=== PATIENT | female | born 1965 | race Caucasian/White ===

== ENCOUNTER 2018-03-22 10:12 | Day surgery (SDC) | payer BC ==
[2018-03-20 15:51] VITALS: BMI 26.4
[~2018-03-22 10:12] MED LIST: LACTATED RINGERS 1,000 ML IV SCH
[2018-03-22 10:40] VITALS: TEMP 97.6
[2018-03-22] MEDS ORDERED: LIDOCAINE 1% 20 ML VIAL (10MG/ML) FOR IV START INTRADERMA ONE (10:47)
[2018-03-22] MEDS ORDERED: LACTATED RINGERS 1,000 ML IV ONE ×2 (10:48)
[2018-03-22] MEDS ORDERED: fentaNYL (PF) 50 MCG/ML 2 ML AMP ONE (11:24)
[2018-03-22] MEDS ORDERED: PROPOFOL 10 MG/ML 20 ML VIAL IV ONE (11:24)
[2018-03-22] MEDS ORDERED: KETAMINE 10 MG/ML 20 ML VIAL ONE (11:24)
--- NOTE | 2018-03-22 11:36 | P.GSHP ---
History of Present Illness H&P Date: 03/22/18 Chief Complaint: Screening colonoscopy This a 52-year-old female who presents today for screening colonoscopy. She's never had a colonoscopy before. Past Medical History Past Medical History: No Reported History History of Any Multi-Drug Resistant Organisms: None Reported Past Surgical History: Back Surgery, Tonsillectomy Past Anesthesia/Blood Transfusion Reactions: No Reported Reaction Smoking Status: Never smoker - Past Family History Mother Family Medical History: No Reported History Medications and Allergies Home Medications Medication Instructions Recorded Confirmed Type Ibuprofen [Motrin] 600 mg PO Q6HR PRN 03/20/18 03/22/18 History Allergies Allergy/AdvReac Type Severity Reaction Status Date / Time No Known Allergies Allergy Verified 03/22/18 10:29 Surgical - Exam Vital Signs Temp Pulse Resp BP Pulse Ox 97.6 F 74 16 113/70 98 03/22/18 10:39 03/22/18 10:39 03/22/18 10:39 03/22/18 10:39 03/22/18 10:39 - General well developed, no distress - Eyes PERRL - ENT normal pinna - Neck no masses - Respiratory normal expansion - Cardiovascular Rhythm: regular - Abdomen Abdomen: soft, non tender Assessment and Plan Assessment: We'll perform screening colonoscopy.
--- NOTE | 2018-03-22 11:55 | P.OP ---
Date of Procedure: 03/22/18 Preoperative Diagnosis: Screening colonoscopy Postoperative Diagnosis: Normal colon Procedure(s) Performed: Colonoscopy Anesthesia: MAC Surgeon: Phoenix Bill Pathology: none sent Condition: stable Disposition: PACU Description of Procedure: PROCEDURE: The patient was placed on the endoscopy table in the lateral position. Digital rectal examination was performed which revealed no abnormalities. es. Flexible colonoscope was then placed in the patient's anus and passed throughout the entire colon. The ileocecal valve was visualized. The cecum, ascending, transverse, descending and sigmoid colon were normal. The rectum was normal as well. There were no masses, polyps or diverticula noted in the entire colon. SUMMARY OF FINDINGS: Normal colonoscopy.
[2018-03-22 12:09] VITALS: BP 102/69; PULSE 80; RESP 16
== END 2018-03-22 12:35 | disposition home or self-care (01) ==
LOC: ORWHC2ENDO 10:12
PROVIDERS: ATTEND Surgery
DX: Z12.11 Encounter for screening for malignant neoplasm of colon (principal); F17.200 Nicotine dependence, unspecified, uncomplicated
CPT/HCPCS: J3010; J2704; G0121

== ENCOUNTER 2019-08-04 09:56 | Inpatient (IN) | payer BC ==
[2019-08-04] MEDS ORDERED: ACETAMINOPHEN TAB 500 MG TAB PO STA (10:26)
[2019-08-04] MEDS ORDERED: KETOROLAC 30 MG/ML 1 ML VIAL IVP STA (10:27)
[2019-08-04] MEDS ORDERED: SODIUM CHLORIDE 0.9% 1,000 ML IV STA ×2 (10:31→14:10)
--- NOTE | 2019-08-04 10:32 | ED ---
General Adult HPI - General Chief complaint: Urogenital Stated complaint: Fever, poss UTI Time Seen by Provider: 08/04/19 10:11 Source: patient, RN notes reviewed Mode of arrival: EMS Limitations: no limitations - History of Present Illness Initial comments: 53-year-old female presents to the emergency department for a chief complaint of fever. Patient states that she believes she has a urinary tract infection. States she has some dull pain in her back and has had some pain in her lower abdomen. Patient states that she has had urinary urgency and cloudy urine for the past 2-3 days. She states she noticed a fever yesterday and was taking Motrin and Tylenol. She has not taken anything today.Patient has no other complaints at this time including shortness of breath, chest pain, nausea or vomiting, headache, or visual changes. - Related Data Home Medications Medication Instructions Recorded Confirmed Ibuprofen [Motrin] 600 mg PO Q6HR PRN 03/20/18 03/22/18 Allergies Allergy/AdvReac Type Severity Reaction Status Date / Time No Known Allergies Allergy Verified 03/22/18 10:29 Review of Systems ROS Statement: Those systems with pertinent positive or pertinent negative responses have been documented in the HPI. ROS Other: All systems not noted in ROS Statement are negative. Past Medical History Past Medical History: No Reported History History of Any Multi-Drug Resistant Organisms: None Reported Past Surgical History: Back Surgery, Tonsillectomy Past Anesthesia/Blood Transfusion Reactions: No Reported Reaction Past Psychological History: No Psychological Hx Reported Smoking Status: Never smoker Past Alcohol Use History: Occasional Past Drug Use History: None Reported - Past Family History Mother Family Medical History: No Reported History General Exam Limitations: no limitations General appearance: alert, in no apparent distress Head exam: Present: atraumatic, normocephalic, normal inspection Eye exam: Present: normal appearance, PERRL, EOMI. Absent: scleral icterus, conjunctival injection, periorbital swelling ENT exam: Present: normal exam, mucous membranes moist Neck exam: Present: normal inspection, full ROM. Absent: tenderness, meningism us, lymphadenopathy Respiratory exam: Present: normal lung sounds bilaterally. Absent: respiratory distress, wheezes, rales, rhonchi, stridor Cardiovascular Exam: Present: regular rate, normal rhythm, normal heart sounds. Absent: systolic murmur, diastolic murmur, rubs, gallop, clicks GI/Abdominal exam: Present: soft, normal bowel sounds. Absent: distended, tenderness, guarding, rebound, rigid Course Vital Signs 08/04/19 08/04/19 08/04/19 10:03 11:12 11:17 Temperature 103 F H 103.7 F H Pulse Rate 141 H 122 H Respiratory 19 18 Rate Blood Pressure 127/73 113/69 O2 Sat by Pulse 96 98 Oximetry 08/04/19 12:45 Temperature 101.0 F H Pulse Rate 104 H Respiratory 18 Rate Blood Pressure 92/54 O2 Sat by Pulse 94 L Oximetry EKG Findings - EKG Comments: EKG Findings:: Sinus tachycardia, ventricular rate 124, [place] interval 164, QTc 402 Medical Decision Making - Medical Decision Making 53-year-old female presents for a chief complaint of fever. States she believes she has a urinary tract infection. She does not have any significant past medical history. Patient initially had a temperature of 103.7 with a pulse rate of 141. This did improve throughout her stay to 104 heart rate and 101 temperature. She was given antipyretics and 2 L of fluids. She does have a minimal bilateral CVA tenderness. Patient has a white count of 22 with a left shift. CMP unremarkable. Urinalysis does show evidence of infection. CT abdomen and pelvis was obtained to rule out septic stone. This demonstrates bilateral perinephric fat stranding affecting left kidney and a greater degree than the right. Nonspecific in the setting of recently passed calculus or pyelonephritis. Clinically patient does have pyelonephritis. Patient was given 2 L of fluids and 2 g of Rocephin. Vitals have remained stable the patient is borderline hypotensive. She will be kept in the hospital for pyelonephritis and IV fluids. - Lab Data Result diagrams: 08/04/19 11:03 08/04/19 11:03 Lab Results 08/04/19 08/04/19 08/04/19 Range/Units 11:03 11:03 11:03 WBC 22.9 H (3.8-10.6) k/uL RBC 4.12 (3.80-5.40) m/uL Hgb 13.1 (11.4-16.0) gm/dL Hct 37.1 (34.0-46.0) % MCV 89.9 (80.0-100.0) fL MCH 31.8 (25.0-35.0) pg MCHC 35.4 (31.0-37.0) g/dL RDW 12.5 (11.5-15.5) % Plt Count 157 (150-450) k/uL Neutrophils % 90 % Lymphocytes % 2 % Monocytes % 5 % Eosinophils % 0 % Basophils % 0 % Neutrophils # 20.5 H (1.3-7.7) k/uL Lymphocytes # 0.5 L (1.0-4.8) k/uL Monocytes # 1.2 H (0-1.0) k/uL Eosinophils # 0.1 (0-0.7) k/uL Basophils # 0.0 (0-0.2) k/uL PT (9.0-12.0) sec INR (<1.2) APTT (22.0-30.0) sec Sodium 134 L (137-145) mmol/L Potassium 4.0 (3.5-5.1) mmol/L Chloride 101 (98-107) mmol/L Carbon Dioxide 22 (22-30) mmol/L Anion Gap 11 mmol/L BUN 16 (7-17) mg/dL Creatinine 0.72 (0.52-1.04) mg/dL Est GFR (CKD-EPI)AfAm >90 (>60 ml/min/1.73 sqM) Est GFR (CKD-EPI)NonAf >90 (>60 ml/min/1.73 sqM) Glucose 113 H (74-99) mg/dL Plasma Lactic Acid Elias 0.7 (0.7-2.0) mmol/L Calcium 9.1 (8.4-10.2) mg/dL Total Bilirubin 1.0 (0.2-1.3) mg/dL AST 20 (14-36) U/L ALT 24 (9-52) U/L Alkaline Phosphatase 81 (38-126) U/L Total Protein 6.7 (6.3-8.2) g/dL Albumin 3.9 (3.5-5.0) g/dL Urine Color Urine Appearance (Clear) Urine pH (5.0-8.0) Ur Specific [place] (1.001-1.035) Urine Protein (Negative) Urine Glucose (UA) (Negative) Urine Ketones (Negative) Urine Blood (Negative) Urine Nitrite (Negative) Urine Bilirubin (Negative) Urine Urobilinogen (<2.0) mg/dL Ur Leukocyte Esterase (Negative) Urine RBC (0-5) /hpf Urine WBC (0-5) /hpf Urine WBC Clumps (None) /hpf Ur Squamous Epith Cells (0-4) /hpf Urine Bacteria (None) /hpf Urine Mucus (None) /hpf 08/04/19 08/04/19 Range/Units 11:03 12:03 WBC (3.8-10.6) k/uL RBC (3.80-5.40) m/uL Hgb (11.4-16.0) gm/dL Hct (34.0-46.0) % MCV (80.0-100.0) fL MCH (25.0-35.0) pg MCHC (31.0-37.0) g/dL RDW (11.5-15.5) % Plt Count (150-450) k/uL Neutrophils % % Lymphocytes % % Monocytes % % Eosinophils % % Basophils % % Neutrophils # (1.3-7.7) k/uL Lymphocytes # (1.0-4.8) k/uL Monocytes # (0-1.0) k/uL Eosinophils # (0-0.7) k/uL Basophils # (0-0.2) k/uL PT 10.7 (9.0-12.0) sec INR 1.0 (<1.2) APTT 27.7 (22.0-30.0) sec Sodium (137-145) mmol/L Potassium (3.5-5.1) mmol/L Chloride (98-107) mmol/L Carbon Dioxide (22-30) mmol/L Anion Gap mmol/L BUN (7-17) mg/dL Creatinine (0.52-1.04) mg/dL Est GFR (CKD-EPI)AfAm (>60 ml/min/1.73 sqM) Est GFR (CKD-EPI)NonAf (>60 ml/min/1.73 sqM) Glucose (74-99) mg/dL Plasma Lactic Acid Elias (0.7-2.0) mmol/L Calcium (8.4-10.2) mg/dL Total Bilirubin (0.2-1.3) mg/dL AST (14-36) U/L ALT (9-52) U/L Alkaline Phosphatase (38-126) U/L Total Protein (6.3-8.2) g/dL Albumin (3.5-5.0) g/dL Urine Color Yellow Urine Appearance Turbid H (Clear) Urine pH 6.0 (5.0-8.0) Ur Specific [place] 1.019 (1.001-1.035) Urine Protein 2+ H (Negative) Urine Glucose (UA) 1+ H (Negative) Urine Ketones Negative (Negative) Urine Blood Moderate H (Negative) Urine Nitrite Positive H (Negative) Urine Bilirubin Negative (Negative) Urine Urobilinogen <2.0 (<2.0) mg/dL Ur Leukocyte Esterase Large H (Negative) Urine RBC >182 H (0-5) /hpf Urine WBC >182 H (0-5) /hpf Urine WBC Clumps Many H (None) /hpf Ur Squamous Epith Cells 1 (0-4) /hpf Urine Bacteria Few H (None) /hpf Urine Mucus Few H (None) /hpf Disposition Clinical Impression: Pyelonephritis Disposition: ADMITTED IP TO THIS [facility] Condition: Serious Is patient prescribed a controlled substance at d/c from ED?: No Referrals: Meghana Thompson DO [Primary Care Provider] - 1-2 days Time of Disposition: 13:11
[2019-08-04] MEDS: SODIUM CHLORIDE 0.9% 500 ML 500 ML IV SCH ×2 (11:08→12:38)
[2019-08-04 11:31] LABS: Basophils % (A) 0 %; Eosinophils # (A) 0.1 k/uL (0-0.7); Eosinophils % (A) 0 %; HCT 37.1 % (34.0-46.0); HGB 13.1 gm/dL (11.4-16.0); Lymphocytes # (A) 0.5 k/uL (1.0-4.8); Lymphocytes % (A) 2 %; MCH 31.8 pg (25.0-35.0); MCHC 35.4 g/dL (31.0-37.0); MCV 89.9 fL (80.0-100.0); Mean Platelet Volume 6.3; Monocytes # (A) 1.2 k/uL (0-1.0); Monocytes % (A) 5 %; Neutrophils # (A) 20.5 k/uL (1.3-7.7); Neutrophils % (A) 90 %; Platelet Count 157 k/uL (150-450); RBC 4.12 m/uL (3.80-5.40); RDW 12.5 % (11.5-15.5); WBC 22.9 k/uL (3.8-10.6)
[2019-08-04 11:37] LABS: Appearance,Urine Turbid (Clear); Bacteria,Urine Few /hpf; Bilirubin,Urine Negative (Negative); Blood,Urine Moderate (Negative); Color,Urine Yellow; Glucose,Urine (UA) 1+ (Negative); Ketones,Urine Negative (Negative); Leukocyte Esterase,Urine Large (Negative); Mucus,Urine Few /hpf; Nitrite,Urine Positive (Negative); Protein,Urine 2+ (Negative); RBC,Urine >182 /hpf (0-5); Specific Gravity,Urine 1.019 (1.001-1.035); Squamous Epithelial Cell,Urine 1 /hpf (0-4); Urobilinogen,Urine <2.0 mg/dL (<2.0)
[2019-08-04 11:44] LABS: ALT 24 U/L (9-52); AST 20 U/L (14-36); African American GFR (CKD) >90 (>60 ml/min/1.73 sqM); Albumin 3.9 g/dL (3.5-5.0); Alkaline Phosphatase 81 U/L (38-126); Anion Gap 11 mmol/L; Blood Urea Nitrogen 16 mg/dL (7-17); Calcium 9.1 mg/dL (8.4-10.2); Carbon Dioxide 22 mmol/L (22-30); Chloride 101 mmol/L (98-107); Glucose 113 mg/dL (74-99); Non-African American GFR(CKD) >90 (>60 ml/min/1.73 sqM); Sodium 134 mmol/L (137-145); Total Protein 6.7 g/dL (6.3-8.2)
[2019-08-04 12:26] LABS: Partial Thromboplastin Time 27.7 sec (22.0-30.0); Prothrombin Time 10.7 sec (9.0-12.0)
--- NOTE | 2019-08-04 12:27 | XR ---
EXAMINATION TYPE: XR chest 2V DATE OF EXAM: 08/04/2019 COMPARISON: Prior chest x-ray 11/03/2015 HISTORY: Cough TECHNIQUE: Frontal and lateral views of the chest are obtained. FINDINGS: There are overlying cardiac leads. There is no focal air space opacity, pleural effusion, o r pneumothorax seen. The cardiac silhouette size is within normal limits. The osseous structures a re intact, postop changes are again noted at the thoracic lumbar spine. IMPRESSION: No acute cardiopulmonary process.
--- NOTE | 2019-08-04 12:50 | CT ---
EXAMINATION TYPE: CT abdomen pelvis wo con DATE OF EXAM: 08/04/2019 COMPARISON: None HISTORY: Pelvic pain, low back pain, cloudy urine CT DLP: 457.2 mGycm Automated exposure control for dose reduction was used. TECHNIQUE: Helical acquisition of images was performed from the lung bases through the pelvis. FINDINGS: The study is limited due to lack of intravenous contrast. Likely right basilar subsegmental atelectas is. No pericardial fluid. The liver, spleen, pancreas, and adrenal glands have an unremarkable noncontrasted appearance. No fred cified gallstones. There is bilateral perinephric fat stranding, left greater than right. The collecting system is promi nent on the left without overt hydronephrosis. No calculi along the urinary tract. Urinary bladder wa ll thickening with mild perivesicular inflammatory changes. Scattered pelvic phleboliths. Anteverted uterus, lobulated with internal calcification which is statistically due to fibroid change s. No dilated bowel, free air, or free fluid. Morphologically normal appendix. Ovoid fatty lesion within the duodenal jejunal junction likely lipoma. No suspicious adenopathy. Normal course and caliber of the aorta. Remote fracture deformity of L1 bridged by T12-L2 posterior fusion hardware. The left L2 pedicular sc rew is fractured. Degenerative changes throughout the lumbar spine are greatest in degree at L5-S1 wh ich is characterized by loss of disc height, discogenic endplate changes, and osteophyte formation. IMPRESSION: 1. Bilateral perinephric fat stranding affecting the left kidney in a greater degree than the right. This finding is nonspecific however can be seen in the setting of recently passed ureteral calculus o r pyelonephritis. Mild urinary bladder wall thickening with perivesicular inflammation also noted, co rrelate with urinalysis. 2. No urinary tract calculi are visualized. 3. T12-L2 posterior fusion hardware with fracture of the left L2 transpedicular screw.
[2019-08-04] MEDS ORDERED: NALOXONE 0.4 MG/ML 1 ML VIAL IV PRN (13:12)
[2019-08-04] MEDS ORDERED: ONDANSETRON 4 MG/2 ML VIAL IVP PRN (13:12)
[2019-08-04] MEDS: SODIUM CHLORIDE 0.9% 1,000 ML IV SCH (14:03)
--- NOTE | 2019-08-04 14:26 | ED ---
Medical Decision Making - Lab Data Result diagrams: 08/04/19 11:03 08/04/19 11:03 Lab Results 08/04/19 08/04/19 08/04/19 Range/Units 11:03 11:03 11:03 WBC 22.9 H (3.8-10.6) k/uL RBC 4.12 (3.80-5.40) m/uL Hgb 13.1 (11.4-16.0) gm/dL Hct 37.1 (34.0-46.0) % MCV 89.9 (80.0-100.0) fL MCH 31.8 (25.0-35.0) pg MCHC 35.4 (31.0-37.0) g/dL RDW 12.5 (11.5-15.5) % Plt Count 157 (150-450) k/uL Neutrophils % 90 % Lymphocytes % 2 % Monocytes % 5 % Eosinophils % 0 % Basophils % 0 % Neutrophils # 20.5 H (1.3-7.7) k/uL Lymphocytes # 0.5 L (1.0-4.8) k/uL Monocytes # 1.2 H (0-1.0) k/uL Eosinophils # 0.1 (0-0.7) k/uL Basophils # 0.0 (0-0.2) k/uL PT (9.0-12.0) sec INR (<1.2) APTT (22.0-30.0) sec Sodium 134 L (137-145) mmol/L Potassium 4.0 (3.5-5.1) mmol/L Chloride 101 (98-107) mmol/L Carbon Dioxide 22 (22-30) mmol/L Anion Gap 11 mmol/L BUN 16 (7-17) mg/dL Creatinine 0.72 (0.52-1.04) mg/dL Est GFR (CKD-EPI)AfAm >90 (>60 ml/min/1.73 sqM) Est GFR (CKD-EPI)NonAf >90 (>60 ml/min/1.73 sqM) Glucose 113 H (74-99) mg/dL Plasma Lactic Acid Elias 0.7 (0.7-2.0) mmol/L Calcium 9.1 (8.4-10.2) mg/dL Total Bilirubin 1.0 (0.2-1.3) mg/dL AST 20 (14-36) U/L ALT 24 (9-52) U/L Alkaline Phosphatase 81 (38-126) U/L Total Protein 6.7 (6.3-8.2) g/dL Albumin 3.9 (3.5-5.0) g/dL Urine Color Urine Appearance (Clear) Urine pH (5.0-8.0) Ur Specific [place] (1.001-1.035) Urine Protein (Negative) Urine Glucose (UA) (Negative) Urine Ketones (Negative) Urine Blood (Negative) Urine Nitrite (Negative) Urine Bilirubin (Negative) Urine Urobilinogen (<2.0) mg/dL Ur Leukocyte Esterase (Negative) Urine RBC (0-5) /hpf Urine WBC (0-5) /hpf Urine WBC Clumps (None) /hpf Ur Squamous Epith Cells (0-4) /hpf Urine Bacteria (None) /hpf Urine Mucus (None) /hpf 08/04/19 08/04/19 Range/Units 11:03 12:03 WBC (3.8-10.6) k/uL RBC (3.80-5.40) m/uL Hgb (11.4-16.0) gm/dL Hct (34.0-46.0) % MCV (80.0-100.0) fL MCH (25.0-35.0) pg MCHC (31.0-37.0) g/dL RDW (11.5-15.5) % Plt Count (150-450) k/uL Neutrophils % % Lymphocytes % % Monocytes % % Eosinophils % % Basophils % % Neutrophils # (1.3-7.7) k/uL Lymphocytes # (1.0-4.8) k/uL Monocytes # (0-1.0) k/uL Eosinophils # (0-0.7) k/uL Basophils # (0-0.2) k/uL PT 10.7 (9.0-12.0) sec INR 1.0 (<1.2) APTT 27.7 (22.0-30.0) sec Sodium (137-145) mmol/L Potassium (3.5-5.1) mmol/L Chloride (98-107) mmol/L Carbon Dioxide (22-30) mmol/L Anion Gap mmol/L BUN (7-17) mg/dL Creatinine (0.52-1.04) mg/dL Est GFR (CKD-EPI)AfAm (>60 ml/min/1.73 sqM) Est GFR (CKD-EPI)NonAf (>60 ml/min/1.73 sqM) Glucose (74-99) mg/dL Plasma Lactic Acid Elias (0.7-2.0) mmol/L Calcium (8.4-10.2) mg/dL Total Bilirubin (0.2-1.3) mg/dL AST (14-36) U/L ALT (9-52) U/L Alkaline Phosphatase (38-126) U/L Total Protein (6.3-8.2) g/dL Albumin (3.5-5.0) g/dL Urine Color Yellow Urine Appearance Turbid H (Clear) Urine pH 6.0 (5.0-8.0) Ur Specific [place] 1.019 (1.001-1.035) Urine Protein 2+ H (Negative) Urine Glucose (UA) 1+ H (Negative) Urine Ketones Negative (Negative) Urine Blood Moderate H (Negative) Urine Nitrite Positive H (Negative) Urine Bilirubin Negative (Negative) Urine Urobilinogen <2.0 (<2.0) mg/dL Ur Leukocyte Esterase Large H (Negative) Urine RBC >182 H (0-5) /hpf Urine WBC >182 H (0-5) /hpf Urine WBC Clumps Many H (None) /hpf Ur Squamous Epith Cells 1 (0-4) /hpf Urine Bacteria Few H (None) /hpf Urine Mucus Few H (None) /hpf Disposition Clinical Impression: Pyelonephritis Disposition: ADMITTED IP TO THIS HOSP Condition: Serious Referrals: Meghana Thompson DO [Primary Care Provider] - 1-2 days Procedures - Sepsis Sepsis Focused Exam #1 Sepsis Focused Exam Date: 08/04/19 Sepsis Focused Exam Time: 14:15 Sepsis Focused Exam Complete: Yes Vital Signs & RN Notes Reviewed: Yes Capillary Refill: > 2 Seconds: Fingers, Toes Peripheral Pulses: Strong: Radial (R), Radial (L) Skin Color: Normal for Patient Respiratory Exam: normal lung sounds Cardiovascular Exam: regular rate, normal rhythm
[2019-08-04 15:23] VITALS: BMI 25.5
[2019-08-04] MEDS: HYDROcodone/APAP 5-325MG 1 EACH TAB PO PRN (16:32)
[2019-08-04] MEDS: ACETAMINOPHEN TAB 500 MG TAB PO PRN ×2 (17:54→23:44)
--- NOTE | 2019-08-04 22:33 | P.HPIM ---
History of Present Illness H&P Date: 08/04/19 Chief Complaint: Left flank pain Patient is a 53-year-old female without significant past medical history except back surgery came to ER with complaints of fever and abdominal pain. Patient has been having left flank dull pain and lower abdominal pain for the past 2-3 days. Urine has been cloudy and has had urinary urgency and frequency. Patient has been taking Motrin Tylenol alternatively for fever. Patient says that she was treated for sinus problems about a month back with Augmentin course for 2 weeks. Patient was seen by the M.D. at the time. Denied any recent urinary tract infections. Patient was febrile on admission with T-max 10 3F. Patient denied any chest pain or shortness of breath. No nausea vomiting or diarrhea. No headache or dizziness or lightheadedness. WBC 22 CT of abdomen pelvis showed bilateral perinephric fat stranding affecting the le ft kidney greater than right. Suggestive of recently passed urinary calculi versus pyelonephritis. No urinary calculi was noted. Review of Systems Constitutional: Fever and chills . Generalized weakness and fatigue. Abdomen: Patient denied nausea vomiting and diarrhea and abdominal pain. Left flank pain and lower abdominal pain. Cardiovascular: Patient denies any chest pain or short of breath no palpitations. Respiratory: patient denied any cough is from production. No shortness of breath Neurologic: Patient denied any numbness or tingling headache. Musculoskeletal: Patient denies any complaints of joint swelling or deformity. Skin: Negative Psychiatric: Negative Endocrine: No heat or cold intolerance. No recent weight gain. Genitourinary: No dysuria or hematuria. All other 14 point ROS negative except the above Past Medical History Past Medical History: No Reported History History of Any Multi-Drug Resistant Organisms: None Reported Past Surgical History: Back Surgery, Tonsillectomy Additional Past Surgical History / Comment(s): bone fusion in 1998, jaw wired 3 yrs ago Past Anesthesia/Blood Transfusion Reactions: No Reported Reaction Past Psychological History: No Psychological Hx Reported Smoking Status: Never smoker Past Alcohol Use History: Occasional Past Drug Use History: None Reported - Past Family History Mother Family Medical History: No Reported History Medications and Allergies Home Medications Medication Instructions Recorded Confirmed Type Acetaminophen Tab [Tylenol Tab] 1,000 mg PO Q6HR PRN 08/04/19 08/04/19 History Albuterol Sulfate [Ventolin HFA] 2 puff INHALATION RT-Q6H PRN 08/04/19 08/04/19 History Cetirizine HCl [Zyrtec] 10 mg PO DAILY 08/04/19 08/04/19 History Cranberry Fruit Extract [Cranberry] 500 mg PO DAILY 08/04/19 08/04/19 History Ibuprofen [Motrin Ib] 800 mg PO Q6H PRN 08/04/19 08/04/19 History guaiFENesin-DM 600/30MG [Mucinex 1 tab PO Q12H PRN 08/04/19 08/04/19 History Dm] Allergies Allergy/AdvReac Type Severity Reaction Status Date / Time bee venom protein (honey bee) Allergy Unknown Verified 08/04/19 13:42 Milk Containing Products Allergy Unknown Verified 08/04/19 13:42 peanut Allergy Unknown Verified 08/04/19 13:42 salmon oil Allergy Unknown Verified 08/04/19 13:42 soy Allergy Unknown Verified 08/04/19 13:42 sesame seed AdvReac Unknown Verified 08/04/19 13:42 wheat AdvReac Unknown Verified 08/04/19 13:42 Physical Exam Vitals: Vital Signs Temp Pulse Pulse Resp BP BP Pulse Ox 08/04/19 17:47 127 H 08/04/19 17:35 101.1 F H 127 H 17 92/50 94 L 08/04/19 15:00 98.1 F 114 H 16 117/61 99 08/04/19 14:44 95 18 88/60 99 08/04/19 14:16 99.6 F 08/04/19 14:12 97 18 84/54 99 08/04/19 13:25 104/68 08/04/19 12:45 101.0 F H 104 H 18 92/54 94 L 08/04/19 11:17 122 H 18 113/69 98 08/04/19 11:12 103.7 F H 08/04/19 10:03 103 F H 141 H 19 127/73 96 Intake and Output 08/04/19 08/04/19 08/04/19 06:59 14:59 22:59 Other: Voiding Method Toilet Weight 61.28 kg PHYSICAL EXAMINATION: Patient is lying in the bed comfortably, no acute distress, awake alert and oriented.. HEENT: Normocephalic. Neck is supple. Pupils reactive. Nostrils clear. Oral cavity is moist. Ears reveal no drainage. Neck reveals no JVD, carotid bruits, or thyromegaly. CHEST EXAMINATION: Trachea is central. Symmetrical expansion. Lung ag clear to auscultation and percussion. CARDIAC: Normal S1, S2 with no gallops. No murmurs ABDOMEN: Soft. Mild lower abdominal tenderness. No guarding no rigidity. Bowel sounds normal. No organomegaly. No abdominal bruits. Extremities: reveal no edema. No clubbing or cyanosis Neurologically awake, alert, oriented x3 with well-coordinated movements. No focal deficits noted Skin: No rash or skin lesions. Psychiatric: Coperative. Nonsuicidal Musculoskeletal: No joint swelling or deformity. Normal range of motion. Results CBC & Chem 7: 08/04/19 11:03 08/04/19 11:03 Labs: Abnormal Lab Results - Last 24 Hours (Table) 08/04/19 08/04/19 08/04/19 Range/Units 11:03 11:03 11:03 WBC 22.9 H (3.8-10.6) k/uL Neutrophils # 20.5 H (1.3-7.7) k/uL Lymphocytes # 0.5 L (1.0-4.8) k/uL Monocytes # 1.2 H (0-1.0) k/uL Sodium 134 L (137-145) mmol/L Glucose 113 H (74-99) mg/dL Urine Appearance Turbid H (Clear) Urine Protein 2+ H (Negative) Urine Glucose (UA) 1+ H (Negative) Urine Blood Moderate H (Negative) Urine Nitrite Positive H (Negative) Ur Leukocyte Esterase Large H (Negative) Urine RBC >182 H (0-5) /hpf Urine WBC >182 H (0-5) /hpf Urine WBC Clumps Many H (None) /hpf Urine Bacteria Few H (None) /hpf Urine Mucus Few H (None) /hpf Microbiology - Last 24 Hours (Table) 08/04/19 11:03 Urine Culture - Preliminary Urine,Voided Thrombosis Risk Factor Assmnt - DVT/VTE Prophylaxis DVT/VTE Prophylaxis: Pharmacologic Prophylaxis ordered - Choose All That Apply Any of the Below Risk Factors Present?: No Assessment and Plan Assessment: Acute pyelonephritis Severe sepsis secondary to pyelonephritis Lactic acidosis on admission History of back surgery and chronic low back pain DVT prophylaxis with heparin subcu Plan: Patient will be continued on antibiotics in the form of ceftriaxone. Follow-up urine culture report. Continue with Tylenol for fever and IV hydration with normal saline at 1 25 mL per hour. Follow blood cultures. Further recommendations based on the clinical course. Discussed with the family at bedside in detail. Time with Patient: Greater than 30
[2019-08-04] MEDS ORDERED: SODIUM CHLORIDE 0.9% 1,000 ML IV ONE (22:37)
[2019-08-04] MEDS: HEPARIN SODIUM,PORCINE 5,000 UNIT/ML 1 ML VIAL SQ SCH (23:43)
[2019-08-05] MEDS: SODIUM CHLORIDE 0.9% 1,000 ML IV SCH ×4 (04:19→22:00)
[2019-08-05] MEDS ORDERED: SODIUM CHLORIDE 0.9% 500 ML 500 ML IV ONE (04:28)
[2019-08-05] MEDS: LORATADINE 10 MG TAB PO SCH (07:20)
[2019-08-05] MEDS: HEPARIN SODIUM,PORCINE 5,000 UNIT/ML 1 ML VIAL SQ SCH ×3 (07:20→23:46)
[2019-08-05] MEDS: ACETAMINOPHEN TAB 500 MG TAB PO PRN ×2 (07:40→18:13)
[2019-08-05 08:53] LABS: Basophils # (A) 0.1 k/uL (0-0.2); Basophils % (A) 0 %; Eosinophils % (A) 0 %; HCT 32.5 % (34.0-46.0); Lymphocytes # (A) 0.5 k/uL (1.0-4.8); Lymphocytes % (A) 3 %; MCH 31.4 pg (25.0-35.0); MCHC 33.9 g/dL (31.0-37.0); MCV 92.8 fL (80.0-100.0); Monocytes # (A) 1.1 k/uL (0-1.0); Monocytes % (A) 8 %; Neutrophils # (A) 11.5 k/uL (1.3-7.7); Neutrophils % (A) 85 %; Platelet Count 156 k/uL (150-450); RDW 12.8 % (11.5-15.5); WBC 13.6 k/uL (3.8-10.6)
[2019-08-05 09:13] LABS: African American GFR (CKD) >90 (>60 ml/min/1.73 sqM); Anion Gap 6 mmol/L; Blood Urea Nitrogen 11 mg/dL (7-17); Carbon Dioxide 21 mmol/L (22-30); Chloride 110 mmol/L (98-107); Glucose 104 mg/dL (74-99); Non-African American GFR(CKD) >90 (>60 ml/min/1.73 sqM); Potassium 3.5 mmol/L (3.5-5.1); Sodium 137 mmol/L (137-145)
[2019-08-05] MEDS ORDERED: PANTOPRAZOLE 40 MG TABLET PO STA (11:49)
[2019-08-05] MEDS: PANTOPRAZOLE 40 MG TABLET PO SCH (14:42)
[2019-08-05] MEDS: HYDROcodone/APAP 5-325MG 1 EACH TAB PO PRN (14:49)
--- NOTE | 2019-08-05 23:21 | P.PN ---
Subjective Progress Note Date: 08/05/19 Principal diagnosis: Acute pyelonephritis Patient is a 53-year-old female without significant past medical history except back surgery came to ER with complaints of fever and abdominal pain. Patient has been having left flank dull pain and lower abdominal pain for the past 2-3 days. Urine has been cloudy and has had urinary urgency and frequency. Patient has been taking Motrin Tylenol alternatively for fever. Patient says that she was treated for sinus problems about a month back with Augmentin course for 2 weeks. Patient was seen by the M.D. at the time. Denied any recent urinary tract infections. Patient was febrile on admission with T-max 10 3F. Patient denied any chest pain or shortness of breath. No nausea vomiting or diarrhea. No headache or dizziness or lightheadedness. WBC 22 CT of abdomen pelvis showed bilateral perinephric fat stranding affecting the left kidney greater than right. Suggestive of recently passed urinary calculi versus pyelonephritis. No urinary calculi was noted. 08/05/2019 Patient says that her left flank pain is better. Still having lower abdominal pain and discomfort. Patient is febrile this morning. Leukocytosis is trending down with WBC count 13 today. Lactic acidosis resolved. Patient is also being monitored for alcohol withdrawal symptoms. Urine culture report is pending. Patient's blood pressure is in the lower side. Currently being continued on IV hydration. No chest pain or shortness of breath. No nausea vomiting or abdominal pain. Tolerating oral diet. Currently being continued on IV ceftriaxone. Active Medications Acetaminophen (Tylenol Tab) 1,000 mg PO Q6HR PRN PRN Reason: Pain or Fever > 100.5 Last Admin: 08/05/19 18:13 Dose: 1,000 mg Documented by: Hydrocodone Bitart/Acetaminophen (Rudd 5-325) 1 each PO Q4HR PRN PRN Reason: Moderate Pain Last Admin: 08/05/19 14:49 Dose: 1 each Documented by: Heparin Sodium (Porcine) (Heparin) 5,000 unit SQ Q8HR [facility] Last Admin: 08/05/19 16:11 Dose: Not Given Documented by: Sodium Chloride (Saline 0.9%) 1,000 mls @ 125 mls/hr IV .Q8H [facility] Last Admin: 08/05/19 14:42 Dose: 125 mls/hr Documented by: Ceftriaxone Sodium 2 gm/ (Sodium Chloride) 50 mls @ 100 mls/hr IVPB DAILY [facility] Last Admin: 08/05/19 07:19 Dose: 100 mls/hr Documented by: Loratadine (Claritin) 10 mg PO DAILY [facility] Last Admin: 08/05/19 07:20 Dose: 10 mg Documented by: Naloxone HCl (Narcan) 0.2 mg IV Q2M PRN PRN Reason: Opioid Reversal Ondansetron HCl (Zofran) 4 mg IVP Q8HR PRN PRN Reason: Nausea And Vomiting Pantoprazole Sodium (Protonix) 40 mg PO AC-BID [facility] Last Admin: 08/05/19 14:42 Dose: 40 mg Documented by: Thiamine HCl (Vitamin B-1) 100 mg PO DAILY [facility] Objective - Vital Signs Vital signs: Vital Signs Temp 98.2 F 08/05/19 16:11 Pulse 93 08/05/19 16:15 Resp 17 08/05/19 16:15 BP 103/68 08/05/19 12:06 Pulse Ox 98 08/05/19 12:06 Intake & Output 08/05/19 08/05/19 08/06/19 06:59 18:59 06:59 Intake Total 590 240 Balance 590 240 Intake: Oral 590 240 Other: Voiding Method Toilet Toilet # Voids 2 2 - Exam PHYSICAL EXAMINATION: Patient is lying in the bed comfortably, no acute distress, awake alert and oriented.. HEENT: Normocephalic. Neck is supple. Pupils reactive. Nostrils clear. Oral cavity is moist. Ears reveal no drainage. Neck reveals no JVD, carotid bruits, or thyromegaly. CHEST EXAMINATION: Trachea is central. Symmetrical expansion. Lung ag clear to auscultation and percussion. CARDIAC: Normal S1, S2 with no gallops. No murmurs ABDOMEN: Soft. Mild lower abdominal tenderness. No guarding no rigidity. Bowel sounds normal. No organomegaly. No abdominal bruits. Extremities: reveal no edema. No clubbing or cyanosis Neurologically awake, alert, oriented x3 with well-coordinated movements. No focal deficits noted Skin: No rash or skin lesions. Psychiatric: Coperative. Nonsuicidal Musculoskeletal: No joint swelling or deformity. Normal range of motion. - Labs CBC & Chem 7: 08/05/19 08:09 08/05/19 08:09 Labs: Abnormal Lab Results - Last 24 Hours (Table) 08/05/19 08/05/19 Range/Units 08:09 08:09 WBC 13.6 H (3.8-10.6) k/uL RBC 3.50 L (3.80-5.40) m/uL Hgb 11.0 L (11.4-16.0) gm/dL Hct 32.5 L (34.0-46.0) % Neutrophils # 11.5 H (1.3-7.7) k/uL Lymphocytes # 0.5 L (1.0-4.8) k/uL Monocytes # 1.1 H (0-1.0) k/uL Chloride 110 H (98-107) mmol/L Carbon Dioxide 21 L (22-30) mmol/L Glucose 104 H (74-99) mg/dL Calcium 8.0 L (8.4-10.2) mg/dL Microbiology - Last 24 Hours (Table) 08/04/19 11:03 Blood Culture - Preliminary Blood No Growth after 24 hours 08/04/19 11:03 Urine Culture - Preliminary Urine,Voided Assessment and Plan Assessment: Acute pyelonephritis with left flank pain and lower abdominal pain. Severe sepsis secondary to pyelonephritis Lactic acidosis on admission. Improved now History of back surgery and chronic low back pain DVT prophylaxis with heparin subcu Plan: Patient will be continued on antibiotics in the form of ceftriaxone. Follow-up urine culture report. Continue with Tylenol for fever and IV hydration with normal saline at 1 25 mL per hour. Follow blood cultures. Further recommendations based on the clinical course. Discussed with the family at bedside in detail. Time with Patient: Greater than 30
[2019-08-06] MEDS: ACETAMINOPHEN TAB 500 MG TAB PO PRN ×3 (04:46→20:59)
[2019-08-06] MEDS: SODIUM CHLORIDE 0.9% 1,000 ML IV SCH ×3 (06:04→21:03)
[2019-08-06] MEDS: LORATADINE 10 MG TAB PO SCH (07:17)
[2019-08-06] MEDS: THIAMINE 100 MG TAB PO SCH (07:17)
[2019-08-06] MEDS: PANTOPRAZOLE 40 MG TABLET PO SCH ×2 (07:17→16:40)
[2019-08-06] MEDS: HEPARIN SODIUM,PORCINE 5,000 UNIT/ML 1 ML VIAL SQ SCH ×3 (07:17→21:00)
[2019-08-06 09:21] LABS: Basophils # (A) 0.1 k/uL (0-0.2); Basophils % (A) 1 %; Eosinophils % (A) 0 %; HCT 31.8 % (34.0-46.0); HGB 10.9 gm/dL (11.4-16.0); Lymphocytes # (A) 0.7 k/uL (1.0-4.8); Lymphocytes % (A) 7 %; MCH 31.6 pg (25.0-35.0); MCHC 34.2 g/dL (31.0-37.0); MCV 92.5 fL (80.0-100.0); Mean Platelet Volume 7.5; Monocytes # (A) 0.7 k/uL (0-1.0); Monocytes % (A) 7 %; Neutrophils # (A) 8.6 k/uL (1.3-7.7); Neutrophils % (A) 82 %; Platelet Count 164 k/uL (150-450); RBC 3.44 m/uL (3.80-5.40); RDW 12.7 % (11.5-15.5); WBC 10.5 k/uL (3.8-10.6)
[2019-08-06 09:46] LABS: African American GFR (CKD) >90 (>60 ml/min/1.73 sqM); Anion Gap 8 mmol/L; Blood Urea Nitrogen 7 mg/dL (7-17); Carbon Dioxide 21 mmol/L (22-30); Chloride 109 mmol/L (98-107); Glucose 86 mg/dL (74-99); Non-African American GFR(CKD) >90 (>60 ml/min/1.73 sqM); Potassium 3.6 mmol/L (3.5-5.1); Sodium 138 mmol/L (137-145)
[2019-08-06] MEDS: HYDROcodone/APAP 5-325MG 1 EACH TAB PO PRN (16:41)
--- NOTE | 2019-08-06 22:14 | P.PN ---
Subjective Progress Note Date: 08/06/19 Patient is a 53-year-old female without significant past medical history except back surgery came to ER with complaints of fever and abdominal pain. Patient has been having left flank dull pain and lower abdominal pain for the past 2-3 days. Urine has been cloudy and has had urinary urgency and frequency. Patient has been taking Motrin Tylenol alternatively for fever. Patient says that she was treated for sinus problems about a month back with Augmentin course for 2 weeks. Patient was seen by the M.D. at the time. Denied any recent urinary tract infections. Patient was febrile on admission with T-max 10 3F. Patient denied any chest pain or shortness of breath. No nausea vomiting or diarrhea. No headache or dizziness or lightheadedness. WBC 22 CT of abdomen pelvis showed bilateral perinephric fat stranding affecting the left kidney greater than right. Suggestive of recently passed urinary calculi versus pyelonephritis. No urinary calculi was noted. 08/05/2019 Patient says that her left flank pain is better. Still having lower abdominal pain and discomfort. Patient is febrile this morning. Leukocytosis is trending down with WBC count 13 today. Lactic acidosis resolved. Patient is also being monitored for alcohol withdrawal symptoms. Urine culture report is pending. Patient's blood pressure is in the lower side. Currently being continued on IV hydration. No chest pain or shortness of breath. No nausea vomiting or abdominal pain. Tolerating oral diet. Currently being continued on IV ceftriaxone. 08/06. Tmax overnight to 100.8. She is overall feeling better but continues to have symptoms including lower abdominal pain. She denies dysuria. WBC 10.5 and culture with diaz-sensitive e coli. Objective - Vital Signs Vital signs: Vital Signs Temp 99.1 F 08/06/19 21:00 Pulse 95 08/06/19 21:00 Resp 16 08/06/19 21:00 BP 103/69 08/06/19 21:00 Pulse Ox 93 L 08/06/19 21:00 Intake & Output 08/06/19 08/06/19 08/07/19 06:59 18:59 06:59 Intake Total 1180 2975 Balance 1180 2975 Intake: Intake, IV Titration 1425 Amount Sodium Chloride 0.9% 1, 1375 000 ml @ 125 mls/hr IV . Q8H [facility] Rx#:[id number] cefTRIAXone 2 gm In 50 Sodium Chloride 0.9% 50 ml @ 100 mls/hr IVPB DAILY [facility] Rx#:[id number] Oral 1180 1550 Other: Voiding Method Toilet Toilet # Voids 3 4 - Exam General: well nourished, well developed, NAD. Vitals reviewed Lungs: normal respiratory effort, no wheezes or rales CV: Regular rate and rhythm, no murmur. Peripheral pulses 2+ Abdomen: soft, nondistended, no organomegaly. Lower quadrant TTP : no CVA tenderness Skin: warm and dry. - Labs CBC & Chem 7: 08/06/19 07:49 08/06/19 07:49 Labs: Abnormal Lab Results - Last 24 Hours (Table) 08/06/19 08/06/19 Range/Units 07:49 07:49 RBC 3.44 L (3.80-5.40) m/uL Hgb 10.9 L (11.4-16.0) gm/dL Hct 31.8 L (34.0-46.0) % Neutrophils # 8.6 H (1.3-7.7) k/uL Lymphocytes # 0.7 L (1.0-4.8) k/uL Chloride 109 H (98-107) mmol/L Carbon Dioxide 21 L (22-30) mmol/L Calcium 8.0 L (8.4-10.2) mg/dL Microbiology - Last 24 Hours (Table) 08/04/19 11:03 Urine Culture - Final Urine,Voided Escherichia coli 08/04/19 11:03 Blood Culture - Preliminary Blood No Growth after 48 hours Assessment and Plan (1) Pyelonephritis Current Visit: Yes Status: Acute Code(s): N12 - TUBULO-INTERSTITIAL NEPHRITIS, NOT SPCF ACUTE OR CHRONIC SNOMED Code(s): 30655123 Plan: 1. Acute pyelonephritis. Improving, will continue IV abx today, anticipate dc in the am 2. Allergic rhinitis. Continue zyrtec
[2019-08-07] MEDS ORDERED: ACETAMINOPHEN TAB 500 MG TAB ONE (04:50)
[2019-08-07] MEDS: SODIUM CHLORIDE 0.9% 1,000 ML IV SCH ×3 (05:32→16:21)
[2019-08-07] MEDS: LORATADINE 10 MG TAB PO SCH (07:55)
[2019-08-07] MEDS: THIAMINE 100 MG TAB PO SCH (07:55)
[2019-08-07] MEDS: PANTOPRAZOLE 40 MG TABLET PO SCH ×2 (07:55→16:20)
[2019-08-07] MEDS: HEPARIN SODIUM,PORCINE 5,000 UNIT/ML 1 ML VIAL SQ SCH ×2 (07:55→16:20)
--- NOTE | 2019-08-07 09:07 | P.CONS ---
History of Present Illness - Reason for Consult Consult date: 08/07/19 Persistent fevers - History of Present Illness This is a 53-year-old female with no significant past medical history. Patient presented to [facility] emergency center on August 04 with complaints of left flank pain, abdominal pain and fever for 2-3 days. She had complaints of cloudy urine, increased frequency and urgency. She has recently been treated for bronchitis and completed a course of Augmentin. Patient denies any history of frequent urinary tract infections and all recalls once at 13 years old having a UTI. Patient presented with temperature 103.7, tachycardia 144, leukocytosis 22.9, she did have a period of hypotension treated with IV fluids. Urinalysis was turbid, blood moderate, nitrate positive, leukoesterase large, WBC greater than 182 and a BBC clumps many, bacteria few. Creatinine 0.62, albumin 3.9. CAT scan of the abdomen and pelvis without contrast revealed bilateral perinephric fat stranding affecting the left kidney and a greater degree than the right. This is nonspecific however seen in setting of recently passed ureteral calculus or pyelonephritis. Mild urinary bladder wall thickening and P refer fascicular inflammation. No urinary tract calculi. A T12-L1 posterior fusion hardware with fracture of the left L2 transpedicular screw. Chest x-ray showed no acute cardio pulmonary process. The patient was started on Rocephin. Urine culture is positive for E. coli pansensitive. Patient states that last evening she did have quite a bit of abd ominal pain that this was a constant pressure generalized, continues to have some achiness in the flank area bilaterally and also had a headache in the temporal areas going down to the neck which has improved. Urinary symptoms of burning, frequency and urgency are improving. Review Of Systems: Constitutional: Reports fever, reports chills, reports night sweats. No weight change. No weakness, reports fatigue reports lethargy. No daytime sleepiness. EENT: No headache. No blurred vision or double vision, no loss of vision. No loss of Hearing, no ringing in the ears, no dizziness. Reports nasal drainage or congestion. No epistaxis. No sore throat. Lungs: No shortness of breath, reports cough, no sputum production. No wheezing. Cardiovascular: No chest pain, no lower extremity edema. No palpitations. No paroxysmal nocturnal dyspnea. No orthopnea. No lightheadedness or dizziness. No syncopal episodes. Abdominal: Reports abdominal pain. No nausea, vomiting. No diarrhea. No constipation. No bloody or tarry stools reports loss of appetite. Genitourinary: Reports dysuria, reports improved increased frequency, reports urgency. No urinary retention. Musculoskeletal: No myalgias. No muscle weakness, no gait dysfunction, no frequent falls. No back pain. No neck pain. Integumentary: No wounds, no lesions. No rash or pruritus. No unusual bruising. No change in hair or nails. Neurologic: No aphasia. No facial droop. No change in mentation. No head injury. No headache. No paralysis. No paresthesia. Psychiatric: No depression. No anxiety. No mood swings. Endocrine: No abnormal blood sugars. No weight change. No excessive sweating or thirst. No cold intolerance. Past Medical History Past Medical History: No Reported History History of Any Multi-Drug Resistant Organisms: None Reported Past Surgical History: Back Surgery, Tonsillectomy Additional Past Surgical History / Comment(s): bone fusion in 1998, jaw wired 3 yrs ago Past Anesthesia/Blood Transfusion Reactions: No Reported Reaction Past Psychological History: No Psychological Hx Reported Smoking Status: Never smoker Past Alcohol Use History: Occasional Additional Past Alcohol Use History / Comment(s): Patient is a lifelong nonsmoker, no illicit drug use, occasional alcohol use. Patient lives at home with her significant other. 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 Past Drug Use History: None Reported - Past Family History Mother Family Medical History: No Reported History Medications and Allergies Home Medications Medication Instructions Recorded Confirmed Type Acetaminophen Tab [Tylenol Tab] 1,000 mg PO Q6HR PRN 08/04/19 08/04/19 History Albuterol Sulfate [Ventolin HFA] 2 puff INHALATION RT-Q6H PRN 08/04/19 08/04/19 History Cetirizine HCl [Zyrtec] 10 mg PO DAILY 08/04/19 08/04/19 History Cranberry Fruit Extract [Cranberry] 500 mg PO DAILY 08/04/19 08/04/19 History Ibuprofen [Motrin Ib] 800 mg PO Q6H PRN 08/04/19 08/04/19 History guaiFENesin-DM 600/30MG [Mucinex 1 tab PO Q12H PRN 08/04/19 08/04/19 History Dm] Allergies Allergy/AdvReac Type Severity Reaction Status Date / Time bee venom protein (honey bee) Allergy Unknown Verified 08/04/19 13:42 Milk Containing Products Allergy Unknown Verified 08/04/19 13:42 peanut Allergy Unknown Verified 08/04/19 13:42 salmon oil Allergy Unknown Verified 08/04/19 13:42 soy Allergy Unknown Verified 08/04/19 13:42 sesame seed AdvReac Unknown Verified 08/04/19 13:42 wheat AdvReac Unknown Verified 08/04/19 13:42 Physical Exam Vitals: Vital Signs Temp Pulse Resp BP Pulse Ox 08/07/19 07:54 99.2 F 08/07/19 05:00 100.6 F H 92 16 115/72 92 L 08/06/19 21:00 99.1 F 95 16 103/69 93 L 08/06/19 17:35 100.0 F H 08/06/19 16:00 99 16 08/06/19 14:12 99.9 F H 08/06/19 12:17 100.3 F H 103 H 16 103/63 97 08/06/19 09:00 99.4 F Intake and Output 08/06/19 08/07/19 08/07/19 22:59 06:59 14:59 Intake Total 1220 Balance 1220 Intake: Intake, IV Titration 800 Amount Sodium Chloride 0.9% 1, 800 000 ml @ 125 mls/hr IV . Q8H [facility] Rx#:[id number] Oral 420 Other: Voiding Method Toilet # Voids 4 3 Gen: This is a 53-year-old female. Patient is resting in bed and appears to be comfortable and in no acute distress. HEENT: Head is atraumatic, normocephalic. Pupils equal, round. Sclerae is anicteric. Oral mucous membranes moist. NECK: Supple. No JVD. No lymphadenopathy. No thyromegaly. LUNGS: Clear to auscultation. No wheezes or rhonchi. No intercostal retractions. HEART: Regular rate and rhythm. No murmur. ABDOMEN: Soft. Bowel sounds are present. No masses. Very mild diffuse tenderness. No CVA tenderness. EXTREMITIES: No pedal edema. No calf tenderness. NEUROLOGICAL: Patient is awake, alert and oriented x3. Cranial nerves 2 through 12 are grossly intact. Results Results: Laboratory Results WBC 10.5 k/uL (3.8-10.6) 08/06/19 07:49 RBC 3.44 m/uL (3.80-5.40) L 08/06/19 07:49 Hgb 10.9 gm/dL (11.4-16.0) L 08/06/19 07:49 Hct 31.8 % (34.0-46.0) L 08/06/19 07:49 MCV 92.5 fL (80.0-100.0) 08/06/19 07:49 MCH 31.6 pg (25.0-35.0) 08/06/19 07:49 MCHC 34.2 g/dL (31.0-37.0) 08/06/19 07:49 RDW 12.7 % (11.5-15.5) 08/06/19 07:49 Plt Count 164 k/uL (150-450) 08/06/19 07:49 Neutrophils % 82 % 08/06/19 07:49 Lymphocytes % 7 % 08/06/19 07:49 Monocytes % 7 % 08/06/19 07:49 Eosinophils % 0 % 08/06/19 07:49 Basophils % 1 % 08/06/19 07:49 Neutrophils # 8.6 k/uL (1.3-7.7) H 08/06/19 07:49 Lymphocytes # 0.7 k/uL (1.0-4.8) L 08/06/19 07:49 Monocytes # 0.7 k/uL (0-1.0) 08/06/19 07:49 Eosinophils # 0.0 k/uL (0-0.7) 08/06/19 07:49 Basophils # 0.1 k/uL (0-0.2) 08/06/19 07:49 PT 10.7 sec (9.0-12.0) 08/04/19 12:03 INR 1.0 (<1.2) 08/04/19 12:03 APTT 27.7 sec (22.0-30.0) 08/04/19 12:03 Sodium 138 mmol/L (137-145) 08/06/19 07:49 Potassium 3.6 mmol/L (3.5-5.1) 08/06/19 07:49 Chloride 109 mmol/L (98-107) H 08/06/19 07:49 Carbon Dioxide 21 mmol/L (22-30) L 08/06/19 07:49 Anion Gap 8 mmol/L 08/06/19 07:49 BUN 7 mg/dL (7-17) 08/06/19 07:49 Creatinine 0.62 mg/dL (0.52-1.04) 08/06/19 07:49 Est GFR (CKD-EPI)AfAm >90 (>60 ml/min/1.73 sqM) 08/06/19 07:49 Est GFR (CKD-EPI)NonAf >90 (>60 ml/min/1.73 sqM) 08/06/19 07:49 Glucose 86 mg/dL (74-99) 08/06/19 07:49 Lactic Ac Sepsis Rflx Y 08/04/19 18:28 Plasma Lactic Acid Elias 0.7 mmol/L (0.7-2.0) 08/04/19 21:44 Calcium 8.0 mg/dL (8.4-10.2) L 08/06/19 07:49 Total Bilirubin 1.0 mg/dL (0.2-1.3) 08/04/19 11:03 AST 20 U/L (14-36) 08/04/19 11:03 ALT 24 U/L (9-52) 08/04/19 11:03 Alkaline Phosphatase 81 U/L (38-126) 08/04/19 11:03 Total Protein 6.7 g/dL (6.3-8.2) 08/04/19 11:03 Albumin 3.9 g/dL (3.5-5.0) 08/04/19 11:03 Urine Color Yellow 08/04/19 11:03 Urine Appearance Turbid (Clear) H 08/04/19 11:03 Urine pH 6.0 (5.0-8.0) 08/04/19 11:03 Ur Specific [place] 1.019 (1.001-1.035) 08/04/19 11:03 Urine Protein 2+ (Negative) H 08/04/19 11:03 Urine Glucose (UA) 1+ (Negative) H 08/04/19 11:03 Urine Ketones Negative (Negative) 08/04/19 11:03 Urine Blood Moderate (Negative) H 08/04/19 11:03 Urine Nitrite Positive (Negative) H 08/04/19 11:03 Urine Bilirubin Negative (Negative) 08/04/19 11:03 Urine Urobilinogen <2.0 mg/dL (<2.0) 08/04/19 11:03 Ur Leukocyte Esterase Large (Negative) H 08/04/19 11:03 Urine RBC >182 /hpf (0-5) H 08/04/19 11:03 Urine WBC >182 /hpf (0-5) H 08/04/19 11:03 Urine WBC Clumps Many /hpf (None) H 08/04/19 11:03 Ur Squamous Epith Cells 1 /hpf (0-4) 08/04/19 11:03 Urine Bacteria Few /hpf (None) H 08/04/19 11:03 Urine Mucus Few /hpf (None) H 08/04/19 11:03 CBC & Chem 7: 08/06/19 07:49 08/06/19 07:49 Labs: Abnormal Lab Results - Last 24 Hours (Table) 08/06/19 08/06/19 Range/Units 07:49 07:49 RBC 3.44 L (3.80-5.40) m/uL Hgb 10.9 L (11.4-16.0) gm/dL Hct 31.8 L (34.0-46.0) % Neutrophils # 8.6 H (1.3-7.7) k/uL Lymphocytes # 0.7 L (1.0-4.8) k/uL Chloride 109 H (98-107) mmol/L Carbon Dioxide 21 L (22-30) mmol/L Calcium 8.0 L (8.4-10.2) mg/dL Microbiology - Last 24 Hours (Table) 08/04/19 11:03 Urine Culture - Final Urine,Voided Escherichia coli 08/04/19 11:03 Blood Culture - Preliminary Blood No Growth after 48 hours Assessment and Plan Plan: This is a 53-year-old female presented to the hospital with sepsis and lactic acidosis secondary to urinary tract infection and pyelonephritis. Patient presented with fevers, leukocytosis, tachycardia and hypotension. She has been treated with Rocephin and urine culture is E. coli pansensitive. CAT scan of the abdomen pelvis did show fat stranding more so on the left kidney but bilaterally with no calculi. Patient however continues to run low-grade fevers although white count has normalized to 10.5 and she has been hemodynamically stable. Antibiotics will be addressed. Continue supportive care. Further rec ommendations as patient progresses. The above dictated assessment and findings were discussed with Dr. Kelly. The impression and plan of care have been directed as dictated. Kelsea Bullard nurse practitioner acting as scribe for Dr. Kelly.
[2019-08-07] MEDS: ACETAMINOPHEN TAB 500 MG TAB PO PRN (11:08)
[2019-08-07] MEDS: HYDROcodone/APAP 5-325MG 1 EACH TAB PO PRN ×2 (16:20→20:38)
--- NOTE | 2019-08-07 16:21 | P.PN ---
Subjective Progress Note Date: 08/07/19 Patient is a 53-year-old female without significant past medical history except back surgery came to ER with complaints of fever and abdominal pain. Patient has been having left flank dull pain and lower abdominal pain for the past 2-3 days. Urine has been cloudy and has had urinary urgency and frequency. Patient has been taking Motrin Tylenol alternatively for fever. Patient says that she was treated for sinus problems about a month back with Augmentin course for 2 weeks. Patient was seen by the M.D. at the time. Denied any recent urinary tract infections. Patient was febrile on admission with T-max 10 3F. Patient denied any chest pain or shortness of breath. No nausea vomiting or diarrhea. No headache or dizziness or lightheadedness. WBC 22 CT of abdomen pelvis showed bilateral perinephric fat stranding affecting the left kidney greater than right. Suggestive of recently passed urinary calculi versus pyelonephritis. No urinary calculi was noted. 08/05/2019 Patient says that her left flank pain is better. Still having lower abdominal pain and discomfort. Patient is febrile this morning. Leukocytosis is trending down with WBC count 13 today. Lactic acidosis resolved. Patient is also being monitored for alcohol withdrawal symptoms. Urine culture report is pending. Patient's blood pressure is in the lower side. Currently being continued on IV hydration. No chest pain or shortness of breath. No nausea vomiting or abdominal pain. Tolerating oral diet. Currently being continued on IV ceftriaxone. 08/06. Tmax overnight to 100.8. She is overall feeling better but continues to have symptoms including lower abdominal pain. She denies dysuria. WBC 10.5 and culture with diaz-sensitive e coli. 08/07/2019 E. coli UTI, pansensitive to Rocephin, with persistent fevers, T-max 100.6, WBC within normal limits. Blood cultures reporting no growth at 72 hours. Reports loose bowel movement yesterday. Complains of bloating, diffuse abdominal cramping ,negative bilateral flank pain. Objective - Vital Signs Vital signs: Vital Signs Temp 99.2 F 08/07/19 07:54 Pulse 92 08/07/19 05:00 Resp 16 08/07/19 05:00 BP 115/72 08/07/19 05:00 Pulse Ox 92 L 08/07/19 05:00 Intake & Output 1108/07/19 08/07/19 18:59 06:59 18:59 Intake Total 2975 1220 Balance 2975 1220 Intake: Intake, IV Titration 1425 800 Amount Sodium Chloride 0.9% 1, 1375 800 000 ml @ 125 mls/hr IV . Q8H [facility] Rx#:[id number] cefTRIAXone 2 gm In 50 Sodium Chloride 0.9% 50 ml @ 100 mls/hr IVPB DAILY [facility] Rx#:[id number] Oral 1550 420 Other: Voiding Method Toilet # Voids 4 3 - Exam General: well nourished, well developed, NAD. Vitals reviewed Lungs: normal respiratory effort, no wheezes or rales CV: Regular rate and rhythm, no murmur. Peripheral pulses 2+ Abdomen: soft, bloated, diffuse abdominal tenderness no organomegaly, positive bowel sounds : no CVA tenderness Skin: warm and dry. - Labs CBC & Chem 7: 08/06/19 07:49 08/06/19 07:49 Labs: Abnormal Lab Results - Last 24 Hours (Table) 08/06/19 08/06/19 Range/Units 07:49 07:49 RBC 3.44 L (3.80-5.40) m/uL Hgb 10.9 L (11.4-16.0) gm/dL Hct 31.8 L (34.0-46.0) % Neutrophils # 8.6 H (1.3-7.7) k/uL Lymphocytes # 0.7 L (1.0-4.8) k/uL Chloride 109 H (98-107) mmol/L Carbon Dioxide 21 L (22-30) mmol/L Calcium 8.0 L (8.4-10.2) mg/dL Microbiology - Last 24 Hours (Table) 08/04/19 11:03 Urine Culture - Final Urine,Voided Escherichia coli 08/04/19 11:03 Blood Culture - Preliminary Blood No Growth after 48 hours Assessment and Plan Assessment: (1) Pyelonephritis Current Visit: Yes Status: Acute Code(s): N12 - TUBULO-INTERSTITIAL NE PHRITIS, NOT SPCF ACUTE OR CHRONIC SNOMED Code(s): 92175586 (2) persistent fevers secondary to the above (3) ALLERGIC rhinitis (4) sepsis secondary to pyelonephritis (5) lactic acidosis (6) hypotension, secondary to sepsis, resolved Plan: Continue on current medication regime ,monitoring and symptomatic treatment. Infectious disease consulted related to persistent fevers. Discharge planning in progress pending patient is afebrile 24 hours. The impression and plan of care has been dictated as directed. : I performed a history and examination of this patient, discussed the same with the dictator. I agree with the dictator's note ,documented as a scribe. Any additional findings or plans will be noted.
--- NOTE | 2019-08-07 19:44 | P.CON ---
Consult Note - . Consult date: 08/07/19 Assessment/Plan:: This is a 53-year-old female with no significant past medical history. Patient presented to [facility] emergency [facility] on August 04 with complaints of left flank pain, abdominal pain and fever for 2-3 days. She had complaints of cloudy urine, increased frequency and urgency. She has recently been treated for bronchitis and completed a course of Augmentin. Patient denies any history of frequent urinary tract infections and all recalls once at 13 years old having a UTI. Patient presented with temperature 103.7, tachycardia 144, leukocytosis 22.9, she did have a period of hypotension treated with IV fluids. Urinalysis was turbid, blood moderate, nitrate positive, leukoesterase large, WBC greater than 182 and a BBC clumps many, bacteria few. Creatinine 0.62, albumin 3.9. CAT scan of the abdomen and pelvis without contrast revealed bilateral perinephric fat stranding affecting the left kidney and a greater degree than the right. This is nonspecific however seen in setting of recently passed ureteral calculus or pyelonephritis. Mild urinary bladder wall thickening and perinephric inflammation. No urinary tract calculi. A T12-L1 posterior fusion hardware with fracture of the left L2 transpedicular screw. Chest x-ray showed no acute cardio pulmonary process. The patient was started on Rocephin. Urine culture is positive for E. coli pansensitive. Patient states that last evening she did have quite a bit of abdominal pain that this was a constant pressure generalized, continues to have some achiness in the flank area bilaterally and also had a headache in the temporal areas going down to the neck which has improved. Urinary symptoms of burning, frequency and urgency are improving. Please see the consult note as dictated by nurse practitioner's Mrs. Kelsea Bullard.. 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 She relates she had pyelonephritis at the age of 13 with no troubles in between. She has had the many day history of illness as noted in assessing to feel just slightly better but is still having ongoing discomforts proportionally her high-grade fever 103.7 has improved but not resolved. Pyelonephritis esophagus as with fever up to 7 days. She appears to be an appropriate antibiotic therapy for the diaz susceptible E. coli that has been isolated. We'll add in some Toradol to see if this does not help her pain discomforts and inflammation related to the acute kidney infection. She does have the ability to take a rest from break frequently throughout the day and this is encouraged. She has no other new acute changes that occurred as of late as a etiology for this current infection. The computed tomography scan shows evidence of the perinephric stranding but no evidence of any obstruction however there is some notation that she may have had a stone that passed and this may be the etiology of his current infectious process. Over the next 24 hours should feel well enough for discharge to home to complete a course of oral antibiotic therapy. I agree with the evaluation, assessment and plan as dictated by nurse practitioner Mrs. Kelsea Bullard.
[2019-08-07] MEDS: KETOROLAC 30 MG/ML 1 ML VIAL IVP SCH (20:30)
[2019-08-07 20:34] VITALS: RESP 18
[2019-08-08] MEDS: HEPARIN SODIUM,PORCINE 5,000 UNIT/ML 1 ML VIAL SQ SCH ×2 (00:11→09:14)
[2019-08-08] MEDS: SODIUM CHLORIDE 0.9% 1,000 ML IV SCH ×2 (00:22→09:15)
[2019-08-08] MEDS: KETOROLAC 30 MG/ML 1 ML VIAL IVP SCH ×2 (02:20→09:13)
[2019-08-08 09:10] VITALS: BP 121/74; PULSE 64; TEMP 99
[2019-08-08] MEDS: THIAMINE 100 MG TAB PO SCH (09:13)
[2019-08-08] MEDS: PANTOPRAZOLE 40 MG TABLET PO SCH (09:13)
[2019-08-08] MEDS: LORATADINE 10 MG TAB PO SCH (09:15)
--- NOTE | 2019-08-08 13:15 | P.DS ---
Providers Date of admission: 08/04/19 14:06 Expected date of discharge: 08/08/19 Attending physician: Jhon Desir MD Consults: 08/07/19 08:25 Consult Physician Routine Consulting Provider: Lester Kelly Consult Reason/Comments: persistant fevers Do you want consulting provider notified?: Yes Primary care physician: Meghana Thompson Hospital Course: Final Diagnoses: (1) Pyelonephritis with possible passage of renal calculi Current Visit: Yes Status: Acute Code(s): N12 - TUBULO-INTERSTITIAL NEPHRITIS, NOT SPCF ACUTE OR CHRONIC SNOMED Code(s): 80261954 (2) persistent fevers secondary to the above (3) ALLERGIC rhinitis (4) sepsis secondary to pyelonephritis (5) lactic acidosis, resolved (6) hypotension, secondary to sepsis, resolved Hospital course:Patient is a 53-year-old female without significant past medical history except back surgery came to ER with complaints of fever and abdominal pain. Patient has been having left flank dull pain and lower abdominal pain for the past 2-3 days. Urine has been cloudy and has had urinary urgency and frequency. Patient has been taking Motrin Tylenol alternatively for fever. Patient says that she was treated for sinus problems about a month back with Augmentin course for 2 weeks. Patient was seen by the M.D. at the time. Denied any recent urinary tract infections. Patient was febrile on admission with T-max 10 3F. Patient denied any chest pain or shortness of breath. No nausea vomiting or diarrhea. No headache or dizziness or lightheadedness. WBC 22 CT of abdomen pelvis showed bilateral perinephric fat stranding affecting the left kidney greater than right. Suggestive of recently passed urinary calculi versus pyelonephritis. No urinary calculi was noted. 08/05/2019 Patient says that her left flank pain is better. Still having lower abdominal pain and discomfort. Patient is febrile this morning. Leukocytosis is trending down with WBC count 13 today. Lactic acidosis resolved. Patient is also being monitored for alcohol withdrawal symptoms. Urine culture report is pending. Patient's blood pressure is in the lower side. Currently being continued on IV hydration. No chest pain or shortness of breath. No nausea vomiting or abdominal pain. Tolerating oral diet. Currently being continued on IV ceftriaxone. 08/06. Tmax overnight to 100.8. She is overall feeling better but continues to have symptoms including lower abdominal pain. She denies dysuria. WBC 10.5 and culture with diaz-sensitive e coli. 08/07/2019 E. coli UTI, pansensitive to Rocephin, with persistent fevers, T-max 100.6, WBC within normal limits. Blood cultures reporting no growth at 72 hours. Reports loose bowel movement yesterday. Complains of bloating, diffuse abdominal cramping ,negative bilateral flank pain. Evaluated by infectious disease;Possible passage of renal stone , contributing to etiology of current infection.Pain subsided with Toradol. Temperature currently 99. Cleared by infectious disease for discharge. Patient has been discharged home in a stable condition with guarded prognosis. - Exam General: Alert and oriented 3, no acute distress Lungs: normal respiratory effort, no wheezes or rales CV: Regular rate and rhythm, no murmur. Peripheral pulses 2+ Abdomen: soft, nondistended, nontender ,no organomegaly, positive bowel sounds Neuro: No focal deficits The impression and plan of care has been dictated as directed. : I performed a history and examination of this patient, discussed the same with the dictator. I agree with the dictator's note ,documented as a scribe. Any additional findings or plans will be noted. Patient Condition at Discharge: Stable Plan - Discharge Summary Discharge Rx Participant: No New Discharge Prescriptions: New Amoxic-Pot Clav 875-125Mg [Augmentin 875-125] 1 tab PO Q12HR #8 tablet Ibuprofen 600 mg PO TID PRN #1 capsule PRN Reason: Pain Thiamine [Vitamin B-1] 100 mg PO DAILY tab Continue guaiFENesin-DM 600/30MG [Mucinex Dm] 1 tab PO Q12H PRN PRN Reason: Cold Symptoms Cranberry Fruit Extract [Cranberry] 500 mg PO DAILY Acetaminophen Tab [Tylenol] 1,000 mg PO Q6HR PRN PRN Reason: Pain Or Fever > 100.5 Ibuprofen [Motrin Ib] 800 mg PO Q6H PRN PRN Reason: Pain Cetirizine HCl [Zyrtec] 10 mg PO DAILY Albuterol Sulfate [Ventolin HFA] 2 puff INHALATION RT-Q6H PRN PRN Reason: Shortness Of Breath Discharge Medication List Acetaminophen Tab [Tylenol] 1,000 mg PO Q6HR PRN 08/04/19 [History] Albuterol Sulfate [Ventolin HFA] 2 puff INHALATION RT-Q6H PRN 08/04/19 [History] Cetirizine HCl [Zyrtec] 10 mg PO DAILY 08/04/19 [History] Cranberry Fruit Extract [Cranberry] 500 mg PO DAILY 08/04/19 [History] Ibuprofen [Motrin Ib] 800 mg PO Q6H PRN 08/04/19 [History] guaiFENesin-DM 600/30MG [Mucinex Dm] 1 tab PO Q12H PRN 08/04/19 [History] Amoxic-Pot Clav 875-125Mg [Augmentin 875-125] 1 tab PO Q12HR #8 tablet 08/08/19 [Rx] Ibuprofen 600 mg PO TID PRN #1 capsule 08/08/19 [Rx] Thiamine [Vitamin B-1] 100 mg PO DAILY tab 08/08/19 [Rx] Follow up Appointment(s)/Referral(s): Jhon Desir MD [STAFF PHYSICIAN] - 08/15/19 11:30 am ([address] [place] [address] Office Office # [phone]) Ambulatory/Diagnostic Orders: Complete Blood Count w/diff [LAB.AMB] Time Frame: 3 Days, Location: None Selected Patient Instructions/Handouts: Ibuprofen (By mouth), Amoxicillin/Clavulanate Potassium (By mouth), Kidney Infection (DC) Activity/Diet/Wound Care/Special Instructions: diet as tolerated activity as tolerated Discharge Disposition: HOME SELF-CARE
== END 2019-08-08 11:20 | disposition home or self-care (01) | DRG 872 ==
LOC: EC 09:56 → 3NMEDONC 14:06
PROVIDERS: ADMIT Family Medicine; ATTEND Family Medicine
DX: A41.9 Sepsis, unspecified organism (principal); E87.2 Acidosis; N10 Acute pyelonephritis; B96.20 Unspecified Escherichia coli [E. coli] as the cause of diseases classified elsewhere; N20.0 Calculus of kidney; E11.9 Type 2 diabetes mellitus without complications; J30.9 Allergic rhinitis, unspecified; R65.20 Severe sepsis without septic shock; Z87.442 Personal history of urinary calculi; Z90.89 Acquired absence of other organs
CPT/HCPCS: 36415; 71046; 74176; 80048; 80053; 81001; 83605; 85025; 85610; 85730; 87040; 87077; 87086; 87186; 93005; 96361; 96365; 96375; 99285

== ENCOUNTER 2019-08-19 13:50 | Emergency (ER) | payer BC ==
[2019-08-19 13:56] VITALS: RESP 18
[2019-08-19 14:36] LABS: Appearance,Urine Clear (Clear); Bilirubin,Urine Negative (Negative); Blood,Urine Negative (Negative); Color,Urine Yellow; Glucose,Urine (UA) Negative (Negative); Ketones,Urine Negative (Negative); Leukocyte Esterase,Urine Negative (Negative); Nitrite,Urine Negative (Negative); PH, Urine 6.5 (5.0-8.0); Protein,Urine Negative (Negative); Specific Gravity,Urine 1.013 (1.001-1.035); Urobilinogen,Urine <2.0 mg/dL (<2.0)
[2019-08-19] MEDS ORDERED: KETOROLAC 30 MG/ML 1 ML VIAL IVP STA (14:43)
[2019-08-19] MEDS ORDERED: SODIUM CHLORIDE 0.9% 2,000 ML IV STA (14:43)
--- NOTE | 2019-08-19 14:46 | ED ---
General Adult HPI - General Chief complaint: Urogenital Stated complaint: Fever Time Seen by Provider: 08/19/19 14:33 Source: patient, RN notes reviewed Mode of arrival: ambulatory Limitations: no limitations - History of Present Illness Initial comments: 53-year-old female presents emergency Department chief complaint of fever, lower abdominal pain. Patient was admitted 2 weeks ago does charge on August 08 2019 for pyelonephritis. Patient states that she did follow-up for a urinalysis and which the urine was clear at that time on August 15. Patient states that she developed a fever last night lower abdominal pain consistent with her prior pyelonephritis. Patient states that she said no diarrhea no constipation no sick contacts. She doesn't that she's had sinus cough and cold like symptoms for several weeks she has been on multiple antibiotics for that has been persistent but no acute changes. Denies headache, dizziness, neck pain or neck stiffness. Patient had no prior abdominal surgeries. - Related Data Home Medications Medication Instructions Recorded Confirmed Acetaminophen Tab [Tylenol] 1,000 mg PO Q6HR PRN 08/04/19 08/04/19 Albuterol Sulfate [Ventolin HFA] 2 puff INHALATION RT-Q6H PRN 08/04/19 08/04/19 Cetirizine HCl [Zyrtec] 10 mg PO DAILY 08/04/19 08/04/19 Cranberry Fruit Extract [Cranberry] 500 mg PO DAILY 08/04/19 08/04/19 Ibuprofen [Motrin Ib] 800 mg PO Q6H PRN 08/04/19 08/04/19 guaiFENesin-DM 600/30MG [Mucinex 1 tab PO Q12H PRN 08/04/19 08/04/19 Dm] Previous Rx's Medication Instructions Recorded Amoxic-Pot Clav 875-125Mg 1 tab PO Q12HR #8 tablet 08/08/19 [Augmentin 875-125] Ibuprofen 600 mg PO TID PRN #1 capsule 08/08/19 Thiamine [Vitamin B-1] 100 mg PO DAILY tab 08/08/19 Allergies Allergy/AdvReac Type Severity Reaction Status Date / Time bee venom protein (honey bee) Allergy Unknown Verified 08/19/19 13:54 Milk Containing Products Allergy Unknown Verified 08/19/19 13:54 peanut Allergy Unknown Verified 08/19/19 13:54 salmon oil Allergy Unknown Verified 08/19/19 13:54 soy Allergy Unknown Verified 08/19/19 13:54 sesame seed AdvReac Unknown Verified 08/19/19 13:54 wheat AdvReac Unknown Verified 08/19/19 13:54 Review of Systems ROS Statement: Those systems with pertinent positive or pertinent negative responses have been documented in the HPI. ROS Other: All systems not noted in ROS Statement are negative. Past Medical History Past Medical History: No Reported History History of Any Multi-Drug Resistant Organisms: None Reported Past Surgical History: Back Surgery, Tonsillectomy Additional Past Surgical History / Comment(s): bone fusion in 1998, jaw wired 3 yrs ago Past Anesthesia/Blood Transfusion Reactions: No Reported Reaction Past Psychological History: No Psychological Hx Reported Smoking Status: Never smoker Past Alcohol Use History: Occasional Past Drug Use History: None Reported - Past Family History Mother Family Medical History: No Reported History General Exam Limitations: no limitations General appearance: alert, in no apparent distress Head exam: Present: atraumatic, normocephalic, normal inspection Eye exam: Present: normal appearance, PERRL, EOMI. Absent: scleral icterus, conjunctival injection, periorbital swelling ENT exam: Present: normal exam, normal oropharynx, mucous membranes moist Neck exam: Present: normal inspection, full ROM. Absent: tenderness, meningismus, lymphadenopathy Respiratory exam: Present: normal lung sounds bilaterally. Absent: respiratory distress, wheezes, rales, rhonchi, stridor Cardiovascular Exam: Present: normal rhythm, tachycardia, normal heart sounds. Absent: systolic murmur, diastolic murmur, rubs, gallop, clicks GI/Abdominal exam: Present: soft, tenderness (Mild diffuse), normal bowel sounds. Absent: distended, guarding, rebound, rigid Back exam: Present: CVA tenderness (R) (Minimal), CVA tenderness (L) (Minimal) Neurological exam: Present: alert, oriented X3, CN II-XII intact Skin exam: Present: warm, dry, intact, normal color. Absent: rash Course Vital Signs 08/19/19 08/19/19 08/19/19 13:54 15:32 16:00 Temperature 99.3 F 101.4 F H Pulse Rate 115 H 104 H Respiratory 18 18 Rate Blood Pressure 125/85 112/83 O2 Sat by Pulse 99 95 Oximetry 08/19/19 16:30 Temperature Pulse Rate 109 H Respiratory 18 Rate Blood Pressure 114/82 O2 Sat by Pulse 99 Oximetry Medical Decision Making - Medical Decision Making Patient's labs were essentially unremarkable other than mild leukocytosis. Patient does have a fever with no clear source at this time. Patient's preferred to have a repeat CAT scan in which this was performed is negative for acute findings. I do believe his symptoms are related to a viral infection. Urinalysis is unremarkable there is no evidence of diverticulitis, influenza negative chest x-ray unremarkable. Patient will be discharged advised follow-up PCP tomorrow return for any worsening symptoms. - Lab Data Result diagrams: 08/19/19 15:03 08/19/19 15:03 Lab Results 08/19/19 08/19/19 08/19/19 Range/Units 15:03 15:03 15:03 WBC 11.9 H (3.8-10.6) k/uL RBC 4.47 (3.80-5.40) m/uL Hgb 14.1 D (11.4-16.0) gm/dL Hct 40.4 (34.0-46.0) % MCV 90.3 (80.0-100.0) fL MCH 31.6 (25.0-35.0) pg MCHC 34.9 (31.0-37.0) g/dL RDW 13.0 (11.5-15.5) % Plt Count 348 D (150-450) k/uL Neutrophils % 79 % Lymphocytes % 10 % Monocytes % 6 % Eosinophils % 1 % Basophils % 0 % Neutrophils # 9.4 H (1.3-7.7) k/uL Lymphocytes # 1.2 (1.0-4.8) k/uL Monocytes # 0.8 (0-1.0) k/uL Eosinophils # 0.1 (0-0.7) k/uL Basophils # 0.0 (0-0.2) k/uL Sodium 137 (137-145) mmol/L Potassium 4.1 (3.5-5.1) mmol/L Chloride 102 (98-107) mmol/L Carbon Dioxide 26 (22-30) mmol/L Anion Gap 9 mmol/L BUN 8 (7-17) mg/dL Creatinine 0.65 (0.52-1.04) mg/dL Est GFR (CKD-EPI)AfAm >90 (>60 ml/min/1.73 sqM) Est GFR (CKD-EPI)NonAf >90 (>60 ml/min/1.73 sqM) Glucose 100 H (74-99) mg/dL Plasma Lactic Acid Elias 1.1 (0.7-2.0) mmol/L Calcium 9.5 (8.4-10.2) mg/dL Total Bilirubin 0.6 (0.2-1.3) mg/dL AST 21 (14-36) U/L ALT 35 (9-52) U/L Alkaline Phosphatase 94 (38-126) U/L Total Protein 7.5 (6.3-8.2) g/dL Albumin 4.4 (3.5-5.0) g/dL Amylase 102 (30-110) U/L Lipase 521 H (23-300) U/L Urine Color Urine Appearance (Clear) Urine pH (5.0-8.0) Ur Specific [place] (1.001-1.035) Urine Protein (Negative) Urine Glucose (UA) (Negative) Urine Ketones (Negative) Urine Blood (Negative) Urine Nitrite (Negative) Urine Bilirubin (Negative) Urine Urobilinogen (<2.0) mg/dL Ur Leukocyte Esterase (Negative) Influenza Type A RNA (Not Detectd) Influenza Type B (PCR) (Not Detectd) 08/19/19 08/19/19 Range/Units 15:29 Unknown WBC (3.8-10.6) k/uL RBC (3.80-5.40) m/uL Hgb (11.4-16.0) gm/dL Hct (34.0-46.0) % MCV (80.0-100.0) fL MCH (25.0-35.0) pg MCHC (31.0-37.0) g/dL RDW (11.5-15.5) % Plt Count (150-450) k/uL Neutrophils % % Lymphocytes % % Monocytes % % Eosinophils % % Basophils % % Neutrophils # (1.3-7.7) k/uL Lymphocytes # (1.0-4.8) k/uL Monocytes # (0-1.0) k/uL Eosinophils # (0-0.7) k/uL Basophils # (0-0.2) k/uL Sodium (137-145) mmol/L Potassium (3.5-5.1) mmol/L Chloride (98-107) mmol/L Carbon Dioxide (22-30) mmol/L Anion Gap mmol/L BUN (7-17) mg/dL Creatinine (0.52-1.04) mg/dL Est GFR (CKD-EPI)AfAm (>60 ml/min/1.73 sqM) Est GFR (CKD-EPI)NonAf (>60 ml/min/1.73 sqM) Glucose (74-99) mg/dL Plasma Lactic Acid Elias (0.7-2.0) mmol/L Calcium (8.4-10.2) mg/dL Total Bilirubin (0.2-1.3) mg/dL AST (14-36) U/L ALT (9-52) U/L Alkaline Phosphatase (38-126) U/L Total Protein (6.3-8.2) g/dL Albumin (3.5-5.0) g/dL Amylase (30-110) U/L Lipase (23-300) U/L Urine Color Yellow Urine Appearance Clear (Clear) Urine pH 6.5 (5.0-8.0) Ur Specific [place] 1.013 (1.001-1.035) Urine Protein Negative (Negative) Urine Glucose (UA) Negative (Negative) Urine Ketones Negative (Negative) Urine Blood Negative (Negative) Urine Nitrite Negative (Negative) Urine Bilirubin Negative (Negative) Urine Urobilinogen <2.0 (<2.0) mg/dL Ur Leukocyte Esterase Negative (Negative) Influenza Type A RNA Not Detected (Not Detectd) Influenza Type B (PCR) Not Detected (Not Detectd) Disposition Clinical Impression: Viral infection, Abdominal pain Disposition: HOME SELF-CARE Condition: Stable Instructions (If sedation given, give patient instructions): Abdominal Pain (ED) Additional Instructions: Please return to the Emergency Department if symptoms worsen or any other gini rns. Is patient prescribed a controlled substance at d/c from ED?: No Referrals: Meghana Thompson DO [Primary Care Provider] - 1-2 days Time of Disposition: 17:30
[2019-08-19 15:25] LABS: Basophils % (A) 0 %; Eosinophils # (A) 0.1 k/uL (0-0.7); Eosinophils % (A) 1 %; HCT 40.4 % (34.0-46.0); Lymphocytes # (A) 1.2 k/uL (1.0-4.8); Lymphocytes % (A) 10 %; MCH 31.6 pg (25.0-35.0); MCHC 34.9 g/dL (31.0-37.0); MCV 90.3 fL (80.0-100.0); Mean Platelet Volume 7.2; Monocytes # (A) 0.8 k/uL (0-1.0); Monocytes % (A) 6 %; Neutrophils # (A) 9.4 k/uL (1.3-7.7); Neutrophils % (A) 79 %; RBC 4.47 m/uL (3.80-5.40); WBC 11.9 k/uL (3.8-10.6)
[2019-08-19 15:29] LABS: ALT 35 U/L (9-52); AST 21 U/L (14-36); African American GFR (CKD) >90 (>60 ml/min/1.73 sqM); Albumin 4.4 g/dL (3.5-5.0); Alkaline Phosphatase 94 U/L (38-126); Amylase 102 U/L (30-110); Anion Gap 9 mmol/L; Blood Urea Nitrogen 8 mg/dL (7-17); Calcium 9.5 mg/dL (8.4-10.2); Carbon Dioxide 26 mmol/L (22-30); Chloride 102 mmol/L (98-107); Glucose 100 mg/dL (74-99); Non-African American GFR(CKD) >90 (>60 ml/min/1.73 sqM); Potassium 4.1 mmol/L (3.5-5.1); Sodium 137 mmol/L (137-145); Total Bilirubin 0.6 mg/dL (0.2-1.3); Total Protein 7.5 g/dL (6.3-8.2)
[2019-08-19 15:36] LABS: HGB 14.1 gm/dL (11.4-16.0); Platelet Count 348 k/uL (150-450)
--- NOTE | 2019-08-19 16:28 | XR ---
EXAMINATION TYPE: XR chest 2V DATE OF EXAM: 08/19/2019 COMPARISON: NONE HISTORY: Fever and weakness TECHNIQUE: Frontal and lateral views of the chest are obtained. FINDINGS: There is no focal air space opacity, pleural effusion, or pneumothorax seen. The cardiac silhouette size is within normal limits. Partially visualized thoracolumbar fusion hardware. IMPRESSION: No acute cardiopulmonary process.
--- NOTE | 2019-08-19 17:18 | CT ---
EXAMINATION TYPE: CT abdomen pelvis w con DATE OF EXAM: 08/19/2019 COMPARISON: CT abdomen/pelvis 08/04/2019 HISTORY: fever, recent UTI CT DLP: 787.3 mGycm Automated exposure control for dose reduction was used. TECHNIQUE: Helical acquisition of images was performed from the lung bases through the pelvis. CONTRAST: Performed without Oral Contrast and with IV Contrast, patient injected with 100 mL of Isovue 300. FINDINGS: Lung bases are clear. The heart is not enlarged. The liver, spleen, pancreas, and adrenal glands are within normal limits. No calcified gallstones. No intra or extrahepatic biliary ductal dilatation. Symmetric renal enhancement without hydronephrosis. Urinary bladder is within normal limits. Nodular morphology of the uterus is nonspecific however statistically represent fibroids. No dilated bowel, free air, or free fluid. Morphologically normal appendix. No mesenteric inflammator y changes. Normal course and caliber of the aorta. No suspicious lymphadenopathy. Chronic fracture deformity of L1 is well healed; there are spanning T12 and L2 bipedicular screws wit h fixation rods. The left L2 screw is fractured however not significantly displaced. There is solid o sseous bridging across the posterior elements as well as focally across the vertebral disc spaces on the left. IMPRESSION: No acute intra-abdominal process.
[2019-08-19 17:29] VITALS: BP 115/77; PULSE 91; TEMP 100.2
== END 2019-08-19 17:47 | disposition home or self-care (01) ==
LOC: EC 13:50
DX: B34.9 Viral infection, unspecified (principal); R10.30 Lower abdominal pain, unspecified; Z91.030 Bee allergy status; Z91.011 Allergy to milk products; Z91.010 Allergy to peanuts; Z91.018 Allergy to other foods; Z91.013 Allergy to seafood
CPT/HCPCS: 36415; 80053; 82150; 83605; 83690; 85025; 81003; 87502; 71046; 74177; 99284; 96374; 96361 ×2; J1885; Q9967

== ENCOUNTER → 2020-05-02 | Outpatient (CLI) | payer BC | END | disposition home or self-care (01) | LOC: LABWHC1 11:54 | PROVIDERS: ATTEND Nurse Practitioner Family | DX: Z11.59 Encounter for screening for other viral diseases (principal) | CPT/HCPCS: 36415; 82784 ==

== ENCOUNTER → 2023-11-12 | Outpatient (CLI) | payer BC ==
--- NOTE | 2023-11-12 08:56 | MR ---
EXAMINATION TYPE: MR brain wo/w con DATE OF EXAM: 11/12/2023 COMPARISON: CT brain September 05, 2010 HISTORY: Headaches TECHNIQUE: Multiplanar, multisequence images of the brain and brainstem is performed without and with IV contras t, utilizing 5.5 mL intravenous Gadavist . FINDINGS: Diffusion weighted images demonstrate no evidence of a recent infarct or other diffusion ab normality. There is no extra-axial fluid collection or significant white matter signal abnormality. The ventricular system and cisternal spaces are normal in size and appearance. The brain volume is age appropriate. Midline structures demonstrate normal morphology. The craniocervical junction appears within normal limits. Post contrast images demonstrate punctate 2 mm area of enhancement right basal ganglia image 14 correlating with sagittal image 99 that is too small to further characterize. Some old blood prod ucts may be present in the bilateral basal ganglia as there is blooming artifact bilaterally noted. T he dural venous sinuses appear patent. Globes are intact bilaterally. Fracture deformity medial wall right orbit seen better on old CT. Mild to moderate mucosal thickening involving the inferior right maxillary sinus and minimal mucosal thickening in the left maxillary sinus. Moderate 2 severe mucosal thickening in the right sphenoid si nus. Mild mucosal thickening in the left sphenoid sinus. At least moderate mucosal thickening in the ethmoid sinuses bilaterally. Additional opacification on the right is present. Frontal sinuses are cl ear. IMPRESSION: 1. Paranasal sinus disease is present as detailed above. 2. There is 2 mm punctate area of enhancement right basal ganglia too small to further characterize. Differential includes tiny aneurysm though feeding vessel is not identified. Enhancing mass or lesion cannot be excluded. Advise short-term MRI follow-up in 6 months time to reassess.
== END | disposition home or self-care (01) ==
LOC: RADMRIMAIN 07:58
PROVIDERS: ATTEND Family Medicine
DX: J34.89 Other specified disorders of nose and nasal sinuses (principal); H53.9 Unspecified visual disturbance; R51.9 Headache, unspecified
CPT/HCPCS: 70553; A9585

== ENCOUNTER → 2023-12-20 | Outpatient (CLI) | payer BC ==
--- NOTE | 2023-12-20 14:53 | CT ---
EXAMINATION TYPE: CT sinus wo con DATE OF EXAM: 12/20/2023 COMPARISON: None HISTORY: Chronic sinusitis with headaches x [address] DLP: 467 mGycm CONTRAST: 0 mL of Isovue 300 The paranasal sinuses are examined in the axial plane at 2 mm thick sections. Reconstructed images i n the coronal plane were obtained. There is dental amalgam scatter artifact Mucosal thickening is through the inferior maxillary sinuses bilaterally. There is diffuse mucosal th ickening and opacification throughout the ethmoid air cells. Sphenoid sinus mucosal thickening is pre sent The frontal sinuses are clear. The septum is evaluated. There is septal deviation to the anterior left. The ostiomeatal units are patent. IMPRESSION: 1. Mucosal thickening within maxillary and ethmoid air cells. 2. Some anterior left septal deviation
== END | disposition home or self-care (01) ==
LOC: RADCTMAIN 14:32
PROVIDERS: ATTEND Otolaryngology
DX: J34.2 Deviated nasal septum (principal); J34.89 Other specified disorders of nose and nasal sinuses; J32.0 Chronic maxillary sinusitis; R51.9 Headache, unspecified
CPT/HCPCS: 70486

== ENCOUNTER → 2024-06-11 | Outpatient (CLI) | payer BC ==
--- NOTE | 2024-06-12 09:24 | MM ---
Reason for Exam: Screening (asymptomatic). Last mammogram was performed 20 year(s) and 0 month(s) ago. Patient History: Menarche at age 15. Patient has no children. Paternal cousin had breast cancer at or over age 50. Risk Values: Keri 5 year model risk: 1.3%. NCI Lifetime model risk: 8.0%. Prior Study Comparison: 05/27/2004 Bilateral Screening Mammogram, [facility]. Tissue Density: The breasts are heterogeneously dense, which may obscure small masses. Findings: Analyzed By CAD. There is no suspicious group of microcalcifications or new suspicious mass in either breast. Overall Assessment: Negative, BI-RAD 1 Management: Screening Mammogram of both breasts in 1 year. . Patient should continue monthly self-breast exams. A clinical breast exam by your physician is recommended on an annual basis. This exam should not preclude additional follow-up of suspicious palpable abnormalities. Note on Keri scores and lifetime risk: 1. A Keri score greater than 3% is considered moderate risk. If this is the case, consider specialist referral to assess eligibility for a risk reducing agent. 2. If overall lifetime risk for the development of breast cancer is 20% or higher, the patient may qualify for future screening with alternating mammogram and breast MRI. [facility], , 06/12/2024 9:20 AM. Electronically signed and approved by: Unruly Rogers M.D. Radiolog[facility]
== END | disposition home or self-care (01) ==
LOC: RADMAMWWP 14:14
PROVIDERS: ATTEND Family Medicine
CPT/HCPCS: 77063; 77067

== ENCOUNTER 2024-11-21 13:51 | Emergency (ER) | payer BC ==
[2024-11-21 14:06] VITALS: TEMP 98
--- NOTE | 2024-11-21 14:47 | ED ---
Head Injury HPI - General Chief complaint: Head Injury Stated complaint: Fall-Head injury Time Seen by Provider: 11/21/24 14:09 Source: patient, RN notes reviewed Mode of arrival: ambulatory Limitations: no limitations - History of Present Illness Initial comments: 59-year-old female presents emergency department complaint of head trauma. States that she slipped and fell on some ice 1 week ago but states she still having continuation of pain, headache, intermittent dizziness and a sore and swelling of the back of her head. Patient states her tetanus is up-to-date she did have some bleeding at the time of injury. No blood thinners denies any neck pain no focal weakness. No visual disturbance. - Related Data Home Medications Medication Instructions Recorded Confirmed Acetaminophen Tab [Tylenol] 1,000 mg PO Q6HR PRN 08/04/19 08/04/19 Albuterol Sulfate [Ventolin HFA] 2 puff INHALATION RT-Q6H PRN 08/04/19 08/04/19 Cetirizine HCl [Zyrtec] 10 mg PO DAILY 08/04/19 08/04/19 Cranberry Fruit Extract [Cranberry] 500 mg PO DAILY 08/04/19 08/04/19 Ibuprofen [Motrin Ib] 800 mg PO Q6H PRN 08/04/19 08/04/19 guaiFENesin-DM 600/30MG [Mucinex 1 tab PO Q12H PRN 08/04/19 08/04/19 Dm] Previous Rx's Medication Instructions Recorded Amoxic-Pot Clav 875-125Mg 1 tab PO Q12HR #8 tablet 08/08/19 [Augmentin 875-125] Ibuprofen 600 mg PO TID PRN #1 capsule 08/08/19 Thiamine [Vitamin B-1] 100 mg PO DAILY tab 08/08/19 Allergies/Adverse reactions: Allergies Allergy/AdvReac Type Severity Reaction Status Date / Time bee venom protein (honey bee) Allergy Unknown Verified 11/21/24 14:06 Milk Containing Products Allergy Unknown Verified 11/21/24 14:06 (Dairy) [Milk Containing Products] peanut Allergy Unknown Verified 11/21/24 14:06 salmon oil Allergy Unknown Verified 11/21/24 14:06 soy Allergy Unknown Verified 11/21/24 14:06 sesame seed AdvReac Unknown Verified 11/21/24 14:06 wheat AdvReac Unknown Verified 11/21/24 14:06 Review of Systems ROS Statement: Those systems with pertinent positive or pertinent negative responses have been documented in the HPI. ROS Other: All systems not noted in ROS Statement are negative. Past Medical History Past Medical History: No Reported History History of Any Multi-Drug Resistant Organisms: None Reported Past Surgical History: Back Surgery, Tonsillectomy Additional Past Surgical History / Comment(s): bone fusion in 1998, jaw wired 3 yrs ago Past Anesthesia/Blood Transfusion Reactions: No Reported Reaction Past Psychological History: No Psychological Hx Reported Smoking Status: Vaper Past Alcohol Use History: Occasional Past Drug Use History: None Reported - Past Family History Mother Family Medical History: No Reported History General Exam Limitations: no limitations General appearance: alert, in no apparent distress Head exam: Present: atraumatic, normocephalic. Absent: normal inspection (Posterior scalp swelling, healing wound noted) Eye exam: Present: normal appearance, PERRL, EOMI. Absent: scleral icterus, conjunctival injection, periorbital swelling ENT exam: Present: normal exam, mucous membranes moist Neck exam: Present: normal inspection. Absent: tenderness, meningismus, lymphadenopathy Respiratory exam: Present: normal lung sounds bilaterally. Absent: respiratory distress, wheezes, rales, rhonchi, stridor Cardiovascular Exam: Present: regular rate, normal rhythm, normal heart sounds. Absent: systolic murmur, diastolic murmur, rubs, gallop, clicks Neurological exam: Present: alert, oriented X3, CN II-XII intact, reflexes normal. Absent: motor sensory deficit Course Vital Signs 11/21/24 11/21/24 14:03 16:20 Temperature 98 F 98 F Pulse Rate 80 77 Respiratory 18 16 Rate Blood Pressure 132/78 123/86 O2 Sat by Pulse 98 99 Oximetry Medical Decision Making - Medical Decision Making Was pt. sent in by a medical professional or institution (, PA, PERSONAL INJURY LITIGATION [place]GAL, urgent care, hospital, or [place] health [place] facility...) When possible be specific @ -No Did you speak to anyone other than the patient for history (EMS, parent, family, police, friend...)? What history was obtained from this source @ -No Did you review nursing and triage notes (agree or disagree)? Why? @ -I reviewed and agree with nursing and triage notes Were old charts reviewed (outside hosp., previous admission, EMS record, old EKG, old radiological studies, urgent care reports/EKG's, [place] health care facility records)? Report findings @ -No old charts were reviewed Differential Diagnosis (chest pain, altered mental status, abdominal pain women, abdominal pain men, vaginal bleeding, weakness, fever, dyspnea, syncope, headache, dizziness, GI bleed, back pain, seizure, CVA, palpatations, mental health, musculoskeletal)? @ -Differential Headache: Migraine, tension, cluster, carbon monoxide, central venous thrombosis, pension karma temporal arteritis, acute closure glaucoma, intercranial hemorrhage, mastoiditis, sinusitis, head injury, this is not meant to be an all-inclusive list. EKG interpreted by me (3pts min.). @ -None X-rays interpreted by me (1pt min.). @ -None done CT interpreted by me (1pt min.). @ -CT brain showing no acute intracranial hemorrhage, mass effect U/S interpreted by me (1pt. min.). @ -None done What testing was considered but not performed or refused? (CT, X-rays, U/S, labs)? Why? @ -None What meds were considered but not given or refused? Why? @ -None Did you discuss the management of the patient with other professionals (professionals i.e. , PA, PERSONAL INJURY LITIGATION [place], lab, RT, psych nurse, social work instructor, insurance actuary, teacher, prison officer, cyanide case hardener)? Give summary @ -No Was smoking cessation discussed for >3mins.? @ -No Was critical care preformed (if so, how long)? @ -No Were there social determinants of health that impacted care today? How? (Homelessness, low income, unemployed, alcoholism, drug addiction, transportation, low edu. Level, literacy, decrease access to med. care, retirement, rehab)? @ -No Was there de-escalation of care discussed even if they declined (Discuss DNR or withdrawal of care, Hospice)? DNR status @ -No What co-morbidities impacted this encounter? (DM, HTN, Smoking, COPD, CAD, Cancer, CVA, ARF, Chemo, Hep., AIDS, mental health diagnosis, sleep apnea, morbid obesity)? @ -None Was patient admitted / discharged? Hospital course, mention meds given and route, prescriptions, significant lab abnormalities, going to OR and other pertinent info. @ -Discharge patient presented after having head injury 1 week ago states persistent headache, patient did have severe mechanism of injury patient did have CT showed no acute process. Undiagnosed new problem with uncertain prognosis? @ -No Drug Therapy requiring intensive monitoring for toxicity (Heparin, Nitro, Insulin, Cardizem)? @ -No Were any procedures done? @ -No Diagnosis/symptom? @ -Scalp hematoma, wound Acute, or Chronic, or Acute on Chronic? @ -Acute Uncomplicated (without systemic symptoms) or Complicated (systemic symptoms)? @ -Uncomplicated Side effects of treatment? @ -No Exacerbation, Progression, or Severe Exacerbation? @ -No Poses a threat to life or bodily function? How? (Chest pain, USA, VT, pneumonia, PE, COPD, DKA, ARF, appy, cholecystitis, CVA, Diverticulitis, Homicidal, Suicidal, threat to staff... and all critical care pts) @ -No Disposition Clinical Impression: Hematoma of scalp Disposition: HOME SELF-CARE Condition: Stable Instructions (If sedation given, give patient instructions): Scalp Contusion in Adults (ED) Additional Instructions: Please return to the Emergency Department if symptoms worsen or any other concerns. Is patient prescribed a controlled substance at d/c from ED?: No Referrals: Meghana Thompson DO [Primary Care Provider] - 1-2 days Time of Disposition: 16:01
--- NOTE | 2024-11-21 15:56 | CT ---
EXAMINATION TYPE: CT brain wo con DATE OF EXAM: 11/21/2024 COMPARISON: 09/05/2010 CLINICAL INDICATION: Female, 59 years old with history of head injury; [facility], slip and fall hit back of head x 10days ago. pt still has lump and pain CT DLP: 1231.4 mGycm Automated exposure control for dose reduction was used. Findings: The ventricles, basal cisterns and sulci over the convexities are within normal limits and there is n o mass effect or shift of midline structures. No abnormal density is seen throughout the brain parenchyma and there is no acute intra or extra-axia l hemorrhage. The posterior fossa including the brainstem, fourth ventricle and cerebellar pontine angles appear no rmal. Intraorbital contents appear normal and symmetric. There are moderate to marked chronic inflammatory changes of the maxillary and ethmoid air cells. The mastoid air cells are well aerated. The calvarium is intact. IMPRESSION: No acute bleed or mass effect. [facility], , 11/21/2024 3:53 PM
[2024-11-21 16:21] VITALS: BP 123/86; PULSE 77; RESP 16
== END 2024-11-21 16:21 | disposition home or self-care (01) ==
LOC: EC 13:51
DX: S00.03XA Contusion of scalp, initial encounter (principal); F17.290 Nicotine dependence, other tobacco product, uncomplicated; W00.0XXA Fall on same level due to ice and snow, initial encounter
CPT/HCPCS: 70450; 99283

== ENCOUNTER 2025-04-01 11:08 | Emergency (ER) | payer BC ==
--- NOTE | 2025-04-01 11:31 | ED ---
Abdominal Pain HPI - General Chief Complaint: Abdominal Pain Stated Complaint: Chest pain Time Seen by Provider: 04/01/25 11:13 Source: patient, RN notes reviewed Mode of arrival: ambulatory Limitations: no limitations - History of Present Illness Initial Comments: This is a 59-year-old female who presents to the emergency department for abdominal pain. States that for the last couple of weeks she has had pain in the epigastric/lower chest region. She feels like it may be somewhat worse after eating. Pain is not worse on one side or the other. She does report feeling more tired than usual. She tried taking antacids a couple of times and was not getting any relief. Does not believe the pain is worse with respirations or movement. Denies any hx of cardiac problems. MD Complaint: abdominal pain - Related Data Home Medications Medication Instructions Recorded Confirmed Cetirizine HCl [Zyrtec] 10 mg PO DAILY 08/04/19 04/01/25 Ascorbic Acid [Vitamin C] 1,000 mg PO DAILY 04/01/25 04/01/25 Elmo/D3/Mag11/Zinc/Ply Splicer/Shreyas/Bor 1 tab PO DAILY 04/01/25 04/01/25 [Caltrate 600+D Plus Tablet] Pseudoephedrine 12Hr [Sudafed 12 120 mg PO DAILY 04/01/25 04/01/25 Hour] Vitamin C/Biotin [Hair, Skin and 1 tab PO DAILY 04/01/25 04/01/25 Nails Chew] Previous Rx's Medication Instructions Recorded Mag Hydrox/Al Hydrox/Simeth 10 - 20 ml PO Q4-6H PRN #473 ml 04/01/25 [Maalox] Pantoprazole Sodium 40 mg PO DAILY #30 tab 04/01/25 Allergies Allergy/AdvReac Type Severity Reaction Status Date / Time bee venom protein (honey bee) Allergy from Verified 04/01/25 12:00 allergy test, congestion Milk Containing Products Allergy from Verified 04/01/25 12:00 (Dairy) allergy [Milk Containing Products] test, congestion peanut Allergy from Verified 04/01/25 12:00 allergy test, congestion salmon oil Allergy from Verified 04/01/25 12:00 allergy test, congestion soy Allergy from Verified 04/01/25 12:00 allergy test, congestion sesame seed AdvReac from Verified 04/01/25 12:00 allergy test, congestion wheat AdvReac from Verified 04/01/25 12:00 allergy test, congestion Review of Systems ROS Statement: Those systems with pertinent positive or pertinent negative responses have been documented in the HPI. ROS Other: All systems not noted in ROS Statement are negative. Past Medical History Past Medical History: No Reported History History of Any Multi-Drug Resistant Organisms: None Reported Past Surgical History: Back Surgery, Tonsillectomy Additional Past Surgical History / Comment(s): bone fusion in 1998, jaw wired 3 yrs ago Past Anesthesia/Blood Transfusion Reactions: No Reported Reaction Past Psychological History: No Psychological Hx Reported Smoking Status: Vaper Past Alcohol Use History: Occasional Past Drug Use History: None Reported - Past Family History Mother Family Medical History: No Reported History General Exam Limitations: no limitations General appearance: alert, in no apparent distress Head exam: Present: atraumatic, normocephalic, normal inspection Respiratory exam: Present: normal lung sounds bilaterally. Absent: respiratory distress, wheezes, rales, rhonchi, stridor Cardiovascular Exam: Present: regular rate, normal rhythm GI/Abdominal exam: Present: soft, tenderness (Epigastric/lower chest). Absent: distended Neurological exam: Present: alert, oriented X3, CN II-XII intact Psychiatric exam: Present: normal affect, normal mood Skin exam: Present: warm, dry, intact, normal color. Absent: rash Course Vital Signs 04/01/25 04/01/25 04/01/25 11:10 11:33 13:00 Temperature 98.1 F Pulse Rate 118 H 81 65 Pulse Rate [ 89 Underwear Trimmer ] Respiratory 16 18 18 Rate Blood Pressure 143/97 133/89 120/86 O2 Sat by Pulse 97 98 99 Oximetry 04/01/25 14:25 Temperature 99.0 F Pulse Rate 77 Pulse Rate [ Underwear Trimmer ] Respiratory 18 Rate Blood Pressure 128/80 O2 Sat by Pulse 99 Oximetry Medical Decision Making - Medical Decision Making This is a 59-year-old female who presents to the emergency department for abdominal pain. Was pt. sent in by a medical professional or institution? @ -No Did you speak to anyone other than the patient for history? @ -No Did you review nursing and triage notes? @ -Yes, and I agree, it is accurate with regards to the patient's symptoms. Were old charts reviewed? @ -No Differential Diagnosis? @ -Differential Abdominal Pain Women: Appendicitis, Cholecystitis, diverticulosis, ischemic bowel, pancreatitis, hepatitis, UTI, gastroenteritis, AAA, incarcerated hernia, bowel obstruction, c onstipation, inflammatory bowel, hepatitis, peptic ulcer disease, splenic infarction, perforated viscus, vulvitis, ovarian torsion, PID, kidney stone, placenta abruption, this is not meant to be an all-inclusive list EKG interpreted by me (3pts min.)? @ -EKG interpreted by me demonstrating the following: Sinus rhythm. Ventricular rate 91 bpm, AK interval 166 ms, QRS duration 84 ms, QTc 393 ms. X-rays interpreted by me (1pt min.)? @ -Chest x-ray obtained, my interpretation identifies no localized consolidations or infiltrates. CT interpreted by me (1pt min.)? @ -Not obtained U/S interpreted by me (1pt. min.)? @ -Gallbladder ultrasound obtained. My interpretation identifies no cholelithi asis. What testing was considered but not performed? (CT, X-rays, U/S, labs)? Why? @ -None What meds were considered but not given? Why? @ -None Did you discuss the management of the patient with other professionals? @ -No Did you reconcile home meds? @ -No Was smoking cessation discussed for >3mins.? @ -No Was critical care preformed (if so, how long)? @ -No Were there social determinants of health that impacted care today? How? (Homelessness, low income, unemployed, alcoholism, drug addiction, transportation, low edu. Level, literacy, decrease access to med. care, prison, rehab)? @ -No Was there de-escalation of care discussed even if they declined? (Discuss DNR or withdrawal of care, Hospice)? @ -No What co-morbidities impacted this encounter? (DM, HTN, Smoking, COPD, CAD, Cancer, CVA, Hep., AIDS, mental health diagnosis, sleep apnea, morbid obesity)? @ -None Was patient admitted / discharged? @ -Discharged. Lab work unremarkable. D-dimer and troponin negative. Chest x-ray reveals no acute process. Gallbladder ultrasound reveals no cholelithiasis. She does have mild prominence of the common bile duct. She was not particularly symptomatic in the emergency department and we avoided a GI cocktail as a result. She was given pantoprazole and famotidine. However, it was hard to evaluate for any improvement with this due to her symptoms being very mild at that point. Given that she has no cardiac risk factors and symptoms seem to be somewhat worse after eating, this is more likely gastrointestinal in nature. However, I did offer admission for cardiac evaluation, as a cardiovascular process cannot be excluded. Patient however refused and advised that she would much rather go home and follow-up with her PCP. Advised she discuss the prominent CBD with her primary care provider in the event they want to proceed with further testing like a HIDA scan or MRCP. She was given a prescription for pantoprazole and Maalox to see if that offers any improvement to her symptoms as well. Additionally, information for GI follow-up was provided. Patient discharged home in stable condition. Case discussed with ED attending Dr. Jimenez. Return precautions reviewed in depth, the patient is instructed to return to the emergency department with any new, worsening, or concerning symptoms. Patient verbalized understanding. Undiagnosed new problem with uncertain prognosis? @ -None Drug Therapy requiring intensive monitoring for toxicity (Heparin, Nitro, Insulin, Cardizem)? @ -None Were any procedures done? @ -None Diagnosis/symptom? @ -Epigastric pain, prominent CBD Acute, or Chronic, or Acute on Chronic? @ -Acute Uncomplicated (without systemic symptoms) or Complicated (systemic symptoms)? @ -Uncomplicated Side effects of treatment? @ -None Exacerbation, Progression, or Severe Exacerbation] @ -Not applicable Poses a threat to life or bodily function? @ -None - Lab Data Result diagrams: 04/01/25 11:42 04/01/25 11:42 Lab Results 04/01/25 04/01/25 04/01/25 Range/Units 11:42 11:42 11:42 WBC 5.90 (4.50-10.00) 10*3/uL RBC 4.38 (4.10-5.20) 10*6/uL Hgb 14.0 (12.0-15.0) g/dL Hct 40.5 (37.2-46.3) % MCV 92.5 (80.0-97.0) fL MCH 32.0 (27.0-32.0) pg MCHC 34.6 (32.0-37.0) g/dL Plt Count 218 (140-440) 10*3/uL MPV 9.2 L (9.5-12.2) fL Immature Gran % (Auto) 0.3 % Neutrophils % 67.9 % Lymphocytes % 21.2 % Monocytes % 7.8 % Eosinophils % 2.0 % Basophils % 0.8 % Immature Gran # 0.02 (0.00-0.04) 10*3/uL Neutrophils # 4.00 (1.80-7.70) 10*3/uL Lymphocytes # 1.25 (0.90-5.00) 10*3/uL Monocytes # 0.46 (0.20-1.00) 10*3/uL Eosinophils # 0.12 (0.04-0.35) 10*3/uL Basophils # 0.05 (0.00-0.10) 10*3/uL D-Dimer 0.20 (<0.60) mg/L FEU Sodium 139 (137-145) mmol/L Potassium 4.4 (3.5-5.1) mmol/L Chloride 105 (98-107) mmol/L Carbon Dioxide 21 L (22-30) mmol/L Anion Gap 13 mmol/L BUN 17 (7-17) mg/dL Creatinine 0.57 (0.52-1.04) mg/dL Est GFR (CKD-EPI)AfAm >90 (>60 ml/min/1.73 sqM) Est GFR (CKD-EPI)NonAf >90 (>60 ml/min/1.73 sqM) Glucose 96 (74-99) mg/dL Plasma Lactic Acid Elias (0.7-2.0) mmol/L Calcium 9.8 (8.4-10.2) mg/dL Total Bilirubin 0.7 (0.2-1.3) mg/dL AST 29 (14-36) U/L ALT 18 (4-34) U/L Alkaline Phosphatase 70 (38-126) U/L Troponin I (0.000-0.034) ng/mL Total Protein 7.7 (6.3-8.2) g/dL Albumin 4.9 (3.5-5.0) g/dL Amylase 48 (30-110) U/L Lipase 143 (23-300) U/L 04/01/25 04/01/25 Range/Units 11:42 11:42 WBC (4.50-10.00) 10*3/uL RBC (4.10-5.20) 10*6/uL Hgb (12.0-15.0) g/dL Hct (37.2-46.3) % MCV (80.0-97.0) fL MCH (27.0-32.0) pg MCHC (32.0-37.0) g/dL Plt Count (140-440) 10*3/uL MPV (9.5-12.2) fL Immature Gran % (Auto) % Neutrophils % % Lymphocytes % % Monocytes % % Eosinophils % % Basophils % % Immature Gran # (0.00-0.04) 10*3/uL Neutrophils # (1.80-7.70) 10*3/uL Lymphocytes # (0.90-5.00) 10*3/uL Monocytes # (0.20-1.00) 10*3/uL Eosinophils # (0.04-0.35) 10*3/uL Basophils # (0.00-0.10) 10*3/uL D-Dimer (<0.60) mg/L FEU Sodium (137-145) mmol/L Potassium (3.5-5.1) mmol/L Chloride (98-107) mmol/L Carbon Dioxide (22-30) mmol/L Anion Gap mmol/L BUN (7-17) mg/dL Creatinine (0.52-1.04) mg/dL Est GFR (CKD-EPI)AfAm (>60 ml/min/1.73 sqM) Est GFR (CKD-EPI)NonAf (>60 ml/min/1.73 sqM) Glucose (74-99) mg/dL Plasma Lactic Acid Eilas 1.2 (0.7-2.0) mmol/L Calcium (8.4-10.2) mg/dL Total Bilirubin (0.2-1.3) mg/dL AST (14-36) U/L ALT (4-34) U/L Alkaline Phosphatase (38-126) U/L Troponin I <0.012 (0.000-0.034) ng/mL Total Protein (6.3-8.2) g/dL Albumin (3.5-5.0) g/dL Amylase (30-110) U/L Lipase (23-300) U/L - Radiology Data Radiology results: report reviewed, image reviewed Disposition Clinical Impression: Epigastric pain, Dilation of common bile duct Disposition: HOME SELF-CARE Instructions (If sedation given, give patient instructions): Abdominal Pain (ED), Epigastric Pain (ED) Additional Instructions: Return to the emergency department with any new, worsening, or concerning s ymptoms. Begin taking the pantoprazole daily. Take this 30 to 60 minutes before eating or taking other medication for the best effect. Take the Maalox as needed for a flareup of the pain. Your ultrasound showed a mildly prominent common bile duct. Discuss these findings with your primary care provider to see if they would like to order a HIDA scan or MRCP to further evaluate this area. You can also discuss a referral to a carburetor specialist or contact the carburetor specialist listed below for a follow-up appointment and further evaluation of your ongoing symptoms. Prescriptions: Mag Hydrox/Al Hydrox/Simeth [Maalox] 10 - 20 ml PO Q4-6H PRN #473 ml PRN Reason: Gi Upset Pantoprazole Sodium 40 mg PO DAILY #30 tab Is patient prescribed a controlled substance at d/c from ED?: No Referrals: Meghana Thompson DO [Primary Care Provider] - 1-2 days Suze Meyers MD [STAFF PHYSICIAN] - 1-2 days Time of Disposition: 14:14
[2025-04-01 11:37] VITALS: RESP 18
[2025-04-01] MEDS: SODIUM CHLORIDE 0.9% 1,000 ML IV ONE (11:44)
[2025-04-01] MEDS: FAMOTIDINE 20 MG/2 ML VIAL IV STA (11:45)
[2025-04-01] MEDS: PANTOPRAZOLE 40 MG/10 ML VIAL IVP STA (11:45)
[2025-04-01 12:06] LABS: Basophils # (A) 0.05 10*3/uL (0.00-0.10); Basophils % (A) 0.8 %; Eosinophils # (A) 0.12 10*3/uL (0.04-0.35); Eosinophils % (A) 2.0 %; HCT 40.5 % (37.2-46.3); HGB 14.0 g/dL (12.0-15.0); Lymphocytes # (A) 1.25 10*3/uL (0.90-5.00); Lymphocytes % (A) 21.2 %; MCH 32.0 pg (27.0-32.0); MCHC 34.6 g/dL (32.0-37.0); MCV 92.5 fL (80.0-97.0); Monocytes # (A) 0.46 10*3/uL (0.20-1.00); Monocytes % (A) 7.8 %; Neutrophils # (A) 4.00 10*3/uL (1.80-7.70); Neutrophils % (A) 67.9 %; Platelet Count 218 10*3/uL (140-440); RBC 4.38 10*6/uL (4.10-5.20); RDW 12.8 % (11.5-14.5); WBC 5.90 10*3/uL (4.50-10.00)
[2025-04-01 12:19] LABS: ALT 18 U/L (4-34); AST 29 U/L (14-36); African American GFR (CKD) >90 (>60 ml/min/1.73 sqM); Albumin 4.9 g/dL (3.5-5.0); Alkaline Phosphatase 70 U/L (38-126); Amylase 48 U/L (30-110); Anion Gap 13 mmol/L; Blood Urea Nitrogen 17 mg/dL (7-17); Calcium 9.8 mg/dL (8.4-10.2); Carbon Dioxide 21 mmol/L (22-30); Chloride 105 mmol/L (98-107); Glucose 96 mg/dL (74-99); Lipase 143 U/L (23-300); Non-African American GFR(CKD) >90 (>60 ml/min/1.73 sqM); Potassium 4.4 mmol/L (3.5-5.1); Sodium 139 mmol/L (137-145); Total Protein 7.7 g/dL (6.3-8.2)
--- NOTE | 2025-04-01 12:56 | XR ---
EXAMINATION TYPE: XR chest 2V DATE OF EXAM: 04/01/2025 12:06 PM COMPARISON: 08/19/2019 CLINICAL INDICATION: Female, 59 years old with history of Chest pain, TECHNIQUE: XR chest 2V view(s) obtained. FINDINGS: The heart size is normal. The pulmonary vasculature is normal. The lungs are clear. IMPRESSION: 1. No acute pulmonary process. [facility], Workstation: [facility], 04/01/2025 12:54 PM
--- NOTE | 2025-04-01 13:44 | US ---
EXAMINATION TYPE: US gallbladder DATE OF EXAM: 04/01/2025 COMPARISON: CT CLINICAL INDICATION: Female, 59 years old with history of Epigastric pain; Epigastric pain for over a week TECHNIQUE: Grayscale and color Doppler imaging of the right upper quadrant was performed. FINDINGS: EXAM MEASUREMENTS: Liver Length: 15.6 cm Gallbladder Wall: 0.2 cm CBD: 0.8 cm, normal less than 0.6 cm. Right Kidney: 10.7 x 5.3 x 5.2 cm LIGHTING ADVISER NOTES: Pancreas: wnl, tail obscured by overlying bowel gas Liver: Visualized portions appeared wnl Gallbladder: wnl Evidence for sonographic Ferro's sign: No CBD: Mildly Dilated Right Kidney: wnl IMPRESSION: 1. Mild prominence of the common bile duct. [facility], Workstation: [facility], 04/01/2025 1:42 PM
[2025-04-01 14:29] VITALS: BP 128/80; PULSE 77; TEMP 99
== END 2025-04-01 14:29 | disposition home or self-care (01) ==
LOC: EC 11:08
DX: K83.8 Other specified diseases of biliary tract (principal); F17.290 Nicotine dependence, other tobacco product, uncomplicated; Z91.030 Bee allergy status; Z91.011 Allergy to milk products; Z91.013 Allergy to seafood; Z91.018 Allergy to other foods; Z91.010 Allergy to peanuts
CPT/HCPCS: 36415; 85379; 80053; 82150; 83605; 83690; 84484; 85025; 71046; 76705; 99284; 96374; 96375; 96361; J2470; J1308